=== PATIENT | female | born 1990 | race Caucasian/White ===

== ENCOUNTER 2021-12-20 16:47 | Emergency (ER) | payer BC, SELFPAY ==
--- NOTE | ~2021-12-20 | XR_ITS ---
EXAMINATION: XR chest 2V EXAM DATE: 12/20/2021 17:19 INDICATION: chest pain TECHNIQUE: Frontal and lateral projections of the chest obtained and reviewed. There is no prior crista dy for comparison. FINDINGS: The lungs are clear. There are no pleural effusions. The cardiomediastinal silhouette is within normal limits. There is no pneumothorax suspected. The bones and soft tissues are unremarkab le. IMPRESSION: Unremarkable chest x-ray exam. Reviewed, dictated and finalized at location G.
--- NOTE | ~2021-12-20 | CT_ITS ---
EXAMINATION: CTA chest PE protocol EXAM DATE: 12/20/2021 21:02 INDICATION: Left-sided chest pain, breast pain, elev d dimer.). TECHNIQUE: Spiral CTA of the chest (pulmonary arteries) was performed with 100 cc Omnipaque 350 intr avenous contrast injection. Images were acquired during the pulmonary arterial phase. Coronal maxi mum intensity projection 3D-reconstructions were created by the technologist on dedicated workstation . Axial, coronal and sagittal reformatted images were reviewed. The dose-length product (DLP) for t his examination was 865.29 mGy-cm. The exposure was tailored according to patient size (auto mA exp osure control), and iterative reconstruction (ASIR) was used as additional dose reduction technique. There is no prior study for comparison. FINDINGS: Pulmonary arteries are well opacified and without intraluminal filling defects. No thora cic aortic dissection. The lungs are clear. There are no pleural or pericardial effusions. Trach eobronchial tree is patent. There is no mediastinal, hilar or axillary lymphadenopathy. There is no pneumothorax. Heart normal in size. No evidence of coronary arterial calcification. Upper abd omen is unremarkable. There is thoracic spondylosis without osteoblastic or osteolytic lesions iden tified. IMPRESSION: No pulmonary emboli or acute cardiopulmonary findings. Reviewed, dictated and finalized at location G.
[2021-12-20 16:56] VITALS: BP 129/85; PULSE 113; RESP 18; TEMP 36.8; O2SAT 100
--- NOTE | 2021-12-20 17:01 | ECG_ITS ---
Measurements Intervals [place] Rate: 111 P: 50 MA: 137 QRS: 115 QRSD: 93 T: 53 QT: 315 QTc: 429 Interpretive Statements SINUS TACHYCARDIA LOW VOLTAGE RIGHT AXIS DEVIATION POSSIBLE RIGHT VENTRICULAR HYPERTROPHY [SOME/ALL OF: PROMINENT R IN V1, LATE TRANSITION, RAD, MAY, SSS] ABNORMAL ECG NO PREVIOUS ECG AVAILABLE FOR COMPARISON Electronically Signed On 12-21-2021 11:10:44 CDT by Alon Conley M.D.
[2021-12-20 18:19] LABS: Basophils Absolute Auto 0.1 K/mm3 (0.0-0.1); Basophils Percent Auto 0.5 % (0.2-1.2); Eosinophils Absolute Auto 0.1 K/mm3 (0-0.3); Eosinophils Percent Auto 0.5 % (0-4.4); Hematocrit 46.9 % (37.0-47.0); Hemoglobin 14.9 g/dL (12.0-15.0); Immature Granulocyte Absolute 0.05 K/mm3 (0.00-0.031); Immature Granulocyte Percent A 0.3 % (0-0.5); Lymphocytes Absolute Auto 3.64 K/mm3 (0.9-3.2); Lymphocytes Percent Auto 24.4 % (18.3-44.2); Mean Corpuscular HGB Conc 31.8 g/dl (32-36); Mean Corpuscular Hemoglobin 27.6 pg (26-34); Mean Corpuscular Volume 86.9 fl (80-100); Mean Platelet Volume 8.6 fl (7.4-10.4); Monocytes Percent Auto 6.9 % (2.6-8.5); Neutrophils Percent Auto 67.4 % (45.5-73.1); Platelet Count Result 379 k/mm3 (150-375); Red Cell Distribution Width 14.3 % (11.5-14.5); White Blood Count 14.9 K/mm3 (4.5-10.0)
[2021-12-20 18:28] LABS: Prothrombin Time 12.9 Seconds (11.1-14.7)
[2021-12-20 18:29] LABS: Alanine Aminotransferase 16 U/L (4-35); Albumin Level 4.8 g/dL (3.5-5.1); Alkaline Phosphatase 94 U/L (38-126); Anion Gap 9 mmol/L (8-16); Aspartate Amino Transferase 27 U/L (14-36); Bilirubin,Total 0.2 mg/dL (0.2-1.3); Blood Urea Nitrogen 11 mg/dL (7-17); Calcium 9.1 mg/dL (8.4-10.2); Carbon Dioxide 24 mmol/L (22-30); Chloride 107 mmol/L (98-107); Estimated CRCL calculation 137 ml/min; Estimated Glomerular Filt Rate > 60; Glucose 98 mg/dL (65-110); Lipase 126 U/L (23-300); Partial Thromboplastin Time 33.2 SECONDS (22.3-36.8); Potassium 3.7 mmol/L (3.4-5.0); Sodium 140 mmol/L (137-145)
[2021-12-20 18:31] LABS: D Dimer 0.83 ug/mL (<0.48)
[2021-12-20 18:40] LABS: Troponin I < 0.012 ng/mL (0.000-0.034)
--- NOTE | 2021-12-20 19:40 | ED.CHESTPAIN ---
HPI - Chest Pain General Chief Complaint: Chest Pain Stated Complaint: nausea, cold sweats, chest tightness Time Seen by Provider: 12/20/21 19:39 Source: patient Mode of arrival: ambulatory Limitations: no limitations History of Present Illness HPI narrative: Patient is a 41-year-old female complaining of chest pain, midsternal, tightness, was 8 out of 10, currently down to 2 out of 10, nonradiating, accompanied by nausea and diaphoresis, sudden onset, started this afternoon. Patient states that she is feeling better, currently denies any nausea or diaphoresis. Patient denies any shortness of breath, abdominal pain, vomiting, fever or chills. Related Data Home Medications Medication Instructions Recorded Confirmed No Home Medications 12/20/21 12/20/21 Allergies Allergy/AdvReac Type Severity Reaction Status Date / Time No Known Allergies Allergy Verified 12/20/21 20:07 Review of Systems Review of Systems: All systems reviewed & are unremarkable except as noted in HPI and below Constitutional: Constitutional: Denies body ache(s), Denies chills, Denies excessive sweating, Denies fatigue, Denies fever(s), Denies headache(s), Denies lethargy, Denies malaise, Denies weakness and Denies weight loss Eyes: Eyes: Denies blurry vision, Denies change in vision and Denies loss of vision ENT: Denies dizziness, Denies ear discharge, Denies headache(s), Denies lip swelling, Denies epistaxis, Denies nasal congestion, Denies neck pain, Denies throat swelling and Denies tongue swelling Cardiovascular: Cardiovascular: Denies rapid heart rate, Denies edema, Denies irregular heart rhythm, Denies lightheadedness, Denies palpitations, Denies dyspnea and Denies dyspnea on exertion Respiratory: Respiratory: Denies chest congestion, Denies cough, Denies hemoptysis, Denies dyspnea and Denies dyspnea on exertion Gastrointestinal: Gastrointestinal: Denies abdominal pain, Denies melena, Denies hematochezia, Denies diarrhea, Denies vomiting and Denies hematemesis Musculoskeletal: Musculoskeletal: Denies abnormal gait, Denies deformity, Denies joint swelling, Denies limited range of motion, Denies neck pain and Denies numbness Neurologic: Denies Abnormal speech present, Denies abnormal gait, Denies confusion, Denies dizziness, Denies headache(s), Denies focal weakness, Denies loss of vision, Denies numbness, Denies Other visual disturbances, Denies Sensory deficit (Neuro) and Denies weakness Psychiatric: Psychiatric: Denies confusion, Denies depression, Denies auditory hallucinations, Denies homicidal ideation and Denies suicidal ideation Endocrine: Endocrine: Denies cold intolerance, Denies excessive sweating, Denies fatigue, Denies heat intolerance and Denies palpitations Hematologic/Lymphatic: Hematologic/Lymphatic: Denies easy bleeding and Denies easy bruising Allergic/Immunologic: Allergic/Immunologic: Denies lip swelling, Denies throat swelling and Denies tongue swelling PMFSH Comments Past medical history: None Family history: Negative for coronary artery disease or ME Social history: Non-smoker no EtOH or drug use Exam Const: General: cooperative, comfortable, no acute distress, well developed, alert and awake; No confusion Nutritional Appearance: obese Orientation/consciousness: oriented to person, oriented to place, oriented to time, patient oriented x3 and No confusion Limitations: no limitations HENMT: Head: normal to inspection, normocephalic and atraumatic Ears: hearing grossly normal bilaterally, TM normal on the right and TM normal on the left General nose exam: Normal external nose present, Normal nares present and No nasal discharge present Face and sinus: normal facial exam Mouth: Yes Normal oral and palatal mucosa present, Yes lip normal, Yes tongue normal and Yes oropharynx normal Throat: posterior oropharynx normal, tonsils normal and uvula midline Eyes: General: appearance normal, both eyes and all related structures Pupi
[2021-12-20 19:48] VITALS: PULSE 104; O2SAT 100
[2021-12-20 20:06] VITALS: BP 109/71; PULSE 104; RESP 20; O2SAT 99
[2021-12-20 20:22] LABS: Troponin I < 0.012 ng/mL (0.000-0.034)
[2021-12-20 21:03] VITALS: BP 118/73; PULSE 95; RESP 17; O2SAT 100
[2021-12-20] MEDS: SODIUM CHLORIDE 0.9% IV 1,000 ML 999 ML IV CONT (21:07)
[2021-12-20 21:16] VITALS: BP 118/64; PULSE 92; RESP 17; O2SAT 100
[2021-12-20 21:59] VITALS: BP 101/68; PULSE 89; RESP 15; O2SAT 100
== END 2021-12-20 22:22 | disposition home or self-care (01) ==
PROVIDERS: Emergency Medicine; Emergency Provider Emergency Medicine
DX: R07.89 Other chest pain (principal); R00.0 Tachycardia, unspecified; R94.31 Abnormal electrocardiogram [ECG] [EKG]
CPT/HCPCS: 36415; 71046; 71275; 80053; 81025; 83690; 84484; 85025; 85380; 85610; 85730; 93005; 96360; 99284; J7030; Q9967

== ENCOUNTER 2022-01-17 11:45 | Outpatient (CLI) | payer BC, SELFPAY ==
[2022-01-17 12:25] LABS: Alanine Aminotransferase 15 U/L (4-35); Albumin Level 4.5 g/dL (3.5-5.1); Alkaline Phosphatase 91 U/L (38-126); Anion Gap 6 mmol/L (8-16); Aspartate Amino Transferase 23 U/L (14-36); Bilirubin,Total 0.5 mg/dL (0.2-1.3); Blood Urea Nitrogen 9 mg/dL (7-17); Calcium 8.7 mg/dL (8.4-10.2); Carbon Dioxide 23 mmol/L (22-30); Chloride 107 mmol/L (98-107); Cholesterol 218 mg/dL (0-200); Estimated Glomerular Filt Rate > 60; Glucose 95 mg/dL (65-110); HDL Direct 39 mg/dL; Potassium 3.9 mmol/L (3.4-5.0); Sodium 136 mmol/L (137-145); Triglycerides 83 mg/dL (<150)
[2022-01-17 12:26] LABS: Basophils Absolute Auto 0.1 K/mm3 (0.0-0.1); Basophils Percent Auto 0.7 % (0.2-1.2); Eosinophils Absolute Auto 0.1 K/mm3 (0-0.3); Eosinophils Percent Auto 0.7 % (0-4.4); Hematocrit 47.5 % (37.0-47.0); Hemoglobin 14.9 g/dL (12.0-15.0); Hemoglobin A1C 5.3 % (<5.7); Immature Granulocyte Absolute 0.02 K/mm3 (0.00-0.031); Immature Granulocyte Percent A 0.2 % (0-0.5); Immature Platelet Fraction Pct 1.5 % (0.9-11.2); Lymphocytes Absolute Auto 2.98 K/mm3 (0.9-3.2); Lymphocytes Percent Auto 28.6 % (18.3-44.2); Mean Corpuscular HGB Conc 31.4 g/dl (32-36); Mean Corpuscular Hemoglobin 27.5 pg (26-34); Mean Corpuscular Volume 87.6 fl (80-100); Monocytes Absolute Auto 0.7 K/mm3 (0.1-0.6); Monocytes Percent Auto 6.4 % (2.6-8.5); Neutrophils Absolute Auto 6.6 K/mm3 (1.3-6.7); Neutrophils Percent Auto 63.4 % (45.5-73.1); Platelet Count Result 342 k/mm3 (150-375); Red Blood Count 5.42 M/mm3 (4.2-5.4); White Blood Count 10.4 K/mm3 (4.5-10.0)
[2022-01-17 12:36] LABS: LDL Cholesterol Direct 119 mg/dL
[2022-01-17 12:48] LABS: Vitamin D 25 Hydroxy 21.7 ng/mL
== END 2022-01-17 11:46 | disposition home or self-care (01) ==
LOC: ANHLAB 11:47
PROVIDERS: Visit Provider Nurse Practitioner
DX: Z13.220 Encounter for screening for lipoid disorders (principal); Z13.29 Encounter for screening for other suspected endocrine disorder; Z13.1 Encounter for screening for diabetes mellitus; Z13.21 Encounter for screening for nutritional disorder; Z13.6 Encounter for screening for cardiovascular disorders
CPT/HCPCS: 36415; 80053; 80061; 82306; 83036; 84443; 85025; 85055

== ENCOUNTER 2022-01-25 10:46 | Outpatient (CLI) | payer BC, SELFPAY ==
--- NOTE | ~2022-01-25 | US_ITS ---
EXAMINATION: US soft tissue head and neck DATE: 01/25/2022 11:34 INDICATION: Left neck lump. TECHNIQUE: Multiple grayscale and Doppler ultrasound images of the neck were obtained. COMPARISON: Chest CT 12/20/2021 FINDINGS: There is no abnormal mass or lymphadenopathy in the patient's area of concern in left neck. IMPRESSION: 1. No abnormal mass or lymphadenopathy in the patient's area of concern in left neck. Reviewed, dictated and finalized at location A.
== END 2022-01-25 10:47 | disposition home or self-care (01) ==
LOC: ANHIMG 10:49
PROVIDERS: PCP Internal Medicine; Visit Provider Nurse Practitioner
DX: R22.1 Localized swelling, mass and lump, neck (principal)
CPT/HCPCS: 76536

== ENCOUNTER 2022-01-28 16:58 | Outpatient (CLI) | payer BC, SELFPAY ==
--- NOTE | ~2022-01-28 | CT_ITS ---
EXAMINATION: CT brain wo con DATE: 01/28/2022 17:11 INDICATION: Dizziness and giddiness TECHNIQUE: Computed tomography (CT) of the head was performed without intravenous contrast. Sagittal and coronal reconstructions were performed. The mA was adjusted according to patient size. Iterative reconstruction technique was employed. The dose-length product was 605.33 mGy-cm. COMPARISON: None FINDINGS: No acute intracranial hemorrhage, acute infarction or abnormal extra axial fluid collection. Ventricl es are normal and symmetric. No mass/mass effect. The orbits, paranasal sinuses and mastoid air cells are normal. IMPRESSION: 1. Normal head CT. Reviewed, dictated and finalized at location A. IMPRESSION: 1. Normal head CT.
== END 2022-01-28 16:59 | disposition home or self-care (01) ==
LOC: ANHIMG 17:01
PROVIDERS: PCP Internal Medicine; Visit Provider Nurse Practitioner
DX: R42 Dizziness and giddiness (principal)
CPT/HCPCS: 70450

== ENCOUNTER 2022-01-31 10:23 | Outpatient (CLI) | payer BC, SELFPAY ==
--- NOTE | ~2022-01-31 | US_ITS ---
EXAMINATION: US abdomen complete DATE: 01/31/2022 13:05 INDICATION: Abdominal pain. TECHNIQUE: Multiple grayscale and Doppler ultrasound images of the abdomen were obtained. COMPARISON: Chest CT 12/20/2021 FINDINGS: The visualized portions of the head and body of the pancreas are normal. There is a 1.8 cm hyperechoic mass in the liver. There is normal flow in main portal vein. The gallbladder is normal in size. No gallstones or gallbladder wall thickening. There was no sonographic Grossman sign. The common duct is normal and measures 3 mm. The kidneys are normal in size. The spleen is normal in size. Abdo keagan aorta is normal in caliber. Inferior vena cava is normal. IMPRESSION: 1. 1.8 cm hyperechoic liver mass. In the absence of known malignancy or chronic liver disease, this f inding is likely a hemangioma. Reviewed, dictated and finalized at location B. IMPRESSION: 1. 1.8 cm hyperechoic liver mass. In the absence of known malignancy or chronic liver disease, this finding is likely a hemangioma.
--- NOTE | 2022-01-31 10:42 | EST_ITS ---
Patient Info Name: Alexandria Rios Age: 31 years : 1990 Gender: Female Ht: 69 in Wt: 258 lbs BSA: 2.44 m2 HR: 78 bpm BP: 119 / 73 mmHg Heart Rhythm: Sinus Rhythm Exam Date: 01/31/2022 11:26 AM Exam Location: [facility] Patient Status: Outpatient Admit Date: 01/31/2022 Staff Ordering Physician: Catherine Whiteside VP PURCH[employer]ING[employer]C Air Quality Chemist: EMILIANO Attending Provider: YUNIER SINGH DO Referring Physician: Miesha HEALY; Exercise Technologist: Rosanne Roy RDCS Exercise Physician: Yunier Singh DO Exam Type: CA stress echo Study Info Indications R00.0 - Tachycardia, unspecified Treadmill exercise stress echocardiogram is performed. Summary 1. 1. Negative Real exercise stress test for ischemic ST changes by ECG criteria. 2. 2. Reduced functional capacity, achieving 7 METs of workload. 3. 3. Appropriate HR response to exercise. 4. 4. Appropriate HR recovery at 1 minute post exercise. 5. 5. Negative stress echocardiogram for ischemia by wall motion analysis. 6. 6. Patient informed of the above results. Stress Echo Findings Left Ventricle Appropriate increase in LV endocardial thickening with systole. Appropriate augmentation of contractility with systole. No wall motion abnormality. Left Ventricle Normal LV systolic function, no wall motion abnormality. Protocol: Real Stress ECG Details Stage: REST Duration (min): 5 min : 41 sec Speed (mph): 0.0 Grade (%): 0 HR (bpm): 82 SBP (mmHg): 119 DBP (mmHg): 73 METS: --- Stage: REST Duration (min): 19 min : 57 sec Speed (mph): 0.0 Grade (%): 0 HR (bpm): 92 SBP (mmHg): 119 DBP (mmHg): 73 METS: --- Stage: STAGE 1 Duration (min): 1 min : 0 sec Speed (mph): 1.7 Grade (%): 10 HR (bpm): 122 SBP (mmHg): 119 DBP (mmHg): 73 METS: --- Stage: STAGE 1 Duration (min): 2 min : 0 sec Speed (mph): 1.7 Grade (%): 10 HR (bpm): 136 SBP (mmHg): 119 DBP (mmHg): 73 METS: --- Stage: STAGE 1 Duration (min): 3 min : 0 sec Speed (mph): 1.7 Grade (%): 10 HR (bpm): 144 SBP (mmHg): 142 DBP (mmHg): 80 METS: --- Stage: STAGE 2 Duration (min): 1 min : 0 sec Speed (mph): 2.5 Grade (%): 12 HR (bpm): 156 SBP (mmHg): 142 DBP (mmHg): 80 METS: --- Stage: STAGE 2 Duration (min): 2 min : 0 sec Speed (mph): 2.5 Grade (%): 12 HR (bpm): 168 SBP (mmHg): 169 DBP (mmHg): 83 METS: --- Stage: STAGE 2 Duration (min): 2 min : 1 sec Speed (mph): 0.0 Grade (%): 0 HR (bpm): 169 SBP (mmHg): 169 DBP (mmHg): 83 METS: --- Stage: RECOVERY Duration (min): 0 min : 58 sec Speed (mph): 0.0 Grade (%): 0 HR (bpm): 83 SBP (mmHg): 169 DBP (mmHg): 83 METS: --- Stage: RECOVERY Duration (min): 1 min : 58 sec Speed (mph): 0.0 Grade (%): 0 HR (bpm): 99 SBP (mmHg): 169 DBP (mmHg): 83 METS: --- Stage: RECOVERY Duration (m
--- NOTE | 2022-02-04 12:38 | WPDHOLTEREM ---
Holter/Event Monitor Holter/Event Monitor Date of procedure: 01/31/22 Holter/Event Procedure: 48 Hr Holter Monitor Indications: Tachycardia Conclusion: 1. 48 hour hour holter monitor on 01/31/22. 2. Underlying rhythm is sinus rhythm. HR range 49-156 bpm; average HR 90 bpm. 3. There is 1 premature supraventricular complexes. No supraventricular tachycardia. 4. There is 1 premature ventricular complex. No ventricular tachycardia. 5. No sinoatrial or atrioventricular blocks. No significant pauses greater than 2 seconds. 6. Patient reports symptoms of chest pressure, lightheadedness, migraines which demonstrate sinus rhythm, HR range 90-115 bpm.
== END 2022-01-31 10:24 | disposition home or self-care (01) ==
LOC: ANHCARD 10:23
PROVIDERS: PCP Internal Medicine; Visit Provider Nurse Practitioner
DX: R00.0 Tachycardia, unspecified (principal); R07.9 Chest pain, unspecified; R10.9 Unspecified abdominal pain
CPT/HCPCS: 76700; 93225; 93226; 93351

== ENCOUNTER 2022-02-04 07:04 | Outpatient (CLI) | payer BC, SELFPAY ==
--- NOTE | 2022-02-07 10:20 | P.NEURO_ITS ---
Neurology EEG Report General Information Date of Study: 02/04/22 TEST eeg DIAGNOSIS Loss of consciousness CONDITION OF RECORDING awake drowsy and sleep EEG NUMBER [id number] CLINICAL HISTORY patient states about 2 months ago started having episodes of becoming dizzy visual changes and then losing consciousness for a couple of seconds EEG DESCRIPTION basic resting occipital frequency consists of low to medium voltage 8 to 10 hertz per 2nd alpha admixed with low-voltage 15 to 18 hertz per 2nd beta. Low- voltage beta activity seen diffusely admixed with waxing and waning posterior alpha rhythm. Bilateral symmetrical sleep activity seen during sleep. Photic stimulation produced normal drive. Hyperventilation not done. Non paroxysmal. Nonfocal. Nonlateralizing. IMPRESSION No significant abnormalities noted
== END 2022-02-04 07:05 | disposition home or self-care (01) ==
LOC: ANHCARD 07:05
PROVIDERS: PCP Internal Medicine; Visit Provider Nurse Practitioner
DX: R55 Syncope and collapse (principal)
CPT/HCPCS: 95816

== ENCOUNTER 2022-03-01 18:07 | Emergency (ER) | payer BC, SELFPAY ==
--- NOTE | ~2022-03-01 | XR_ITS ---
EXAMINATION: XR chest 2V DATE: 03/01/2022 19:11 INDICATION: Chest pain TECHNIQUE: PA and lateral views of the chest are obtained. COMPARISON: 12/20/2021 FINDINGS: The lungs are free of acute opacities. There is no pleural effusion or pneumothorax. The ca rdiomediastinal silhouette is normal. The visualized bones and soft tissues are unremarkable. IMPRESSION: 1. No acute cardiopulmonary abnormality. Reviewed, dictated and finalized at location F.
--- NOTE | 2022-03-01 18:10 | ECG_ITS ---
Measurements Intervals [place] Rate: 107 P: 5 CA: 141 QRS: 252 QRSD: 88 T: 11 QT: 326 QTc: 436 Interpretive Statements SINUS TACHYCARDIA RSR' IN V1 OR V2, PROBABLY NORMAL VARIANT LOW QRS VOLTAGE IN PRECORDIAL LEADS BORDERLINE R WAVE PROGRESSION, ANTERIOR LEADS BORDERLINE T WAVE ABNORMALITY- INFERIOR LEADS BASELINE WANDER- I, III, AVL, AVF ABNORMAL ECG Electronically Signed On 03-01-2022 20:36:48 CDT by Yunier Hooks D.O.
[2022-03-01 18:24] VITALS: BP 121/87; PULSE 106; RESP 19; TEMP 36.3; O2SAT 100
[2022-03-01 18:35] VITALS: PULSE 101
[2022-03-01 18:47] VITALS: BP 112/82; PULSE 109; RESP 18; O2SAT 99
[2022-03-01 18:50] LABS: Basophils Absolute Auto 0.1 K/mm3 (0.0-0.1); Basophils Percent Auto 0.7 % (0.2-1.2); Eosinophils Absolute Auto 0.2 K/mm3 (0-0.3); Eosinophils Percent Auto 1.2 % (0-4.4); Hematocrit 45.1 % (37.0-47.0); Hemoglobin 14.4 g/dL (12.0-15.0); Immature Granulocyte Absolute 0.03 K/mm3 (0.00-0.031); Immature Granulocyte Percent A 0.2 % (0-0.5); Lymphocytes Absolute Auto 4.31 K/mm3 (0.9-3.2); Lymphocytes Percent Auto 33.3 % (18.3-44.2); Mean Corpuscular HGB Conc 31.9 g/dl (32-36); Mean Corpuscular Hemoglobin 27.2 pg (26-34); Mean Corpuscular Volume 85.1 fl (80-100); Mean Platelet Volume 8.3 fl (7.4-10.4); Monocytes Absolute Auto 0.9 K/mm3 (0.1-0.6); Monocytes Percent Auto 7.3 % (2.6-8.5); Neutrophils Absolute Auto 7.4 K/mm3 (1.3-6.7); Neutrophils Percent Auto 57.3 % (45.5-73.1); Platelet Count Result 339 k/mm3 (150-375); Red Cell Distribution Width 13.5 % (11.5-14.5); White Blood Count 12.9 K/mm3 (4.5-10.0)
[2022-03-01 19:01] LABS: Partial Thromboplastin Time 35.3 SECONDS (22.3-36.8)
[2022-03-01 19:05] LABS: Alanine Aminotransferase 16 U/L (6-35); Albumin Level 4.4 g/dL (3.5-5.1); Alkaline Phosphatase 85 U/L (38-126); Anion Gap 9 mmol/L (8-16); Aspartate Amino Transferase 29 U/L (14-36); Bilirubin,Total 0.2 mg/dL (0.2-1.3); Blood Urea Nitrogen 12 mg/dL (7-17); Carbon Dioxide 24 mmol/L (22-30); Chloride 105 mmol/L (98-107); Estimated CRCL calculation 93 ml/min; Estimated Glomerular Filt Rate > 60; Glucose 99 mg/dL (65-110); Lipase 125 U/L (23-300); Sodium 138 mmol/L (137-145)
[2022-03-01 19:15] LABS: Troponin I < 0.012 ng/mL (0.000-0.034)
[2022-03-01] MEDS: ASPIRIN 81 MG CHEWABLE TABLET 324 MG PO (20:46)
--- NOTE | 2022-03-01 20:59 | ED.CHESTPAIN ---
HPI - Chest Pain General Chief Complaint: Chest Pain Stated Complaint: chest pain, increased HR Time Seen by Provider: 03/01/22 19:00 History of Present Illness HPI narrative: Patient is a 31-year-old female who presents ER with chest pain. Intermittent over the last 2 months. Began at 3 PM today. Sharp and central to left side. No aggravating or alleviating factors. Typically associated with tachycardia in the 150s. She has had a stress test as well as a Holter monitor. She has sinus tachycardia no arrhythmia. Reports on occasion she will get some lightheadedness with this. She reports there was one episode where she blacked out for 1 second but she did not physically wake up on the ground. She is discontinuing her metoprolol because it was giving her chest pain as well. She does follow-up with cardiology scheduled. Related Data Allergies Allergy/AdvReac Type Severity Reaction Status Date / Time No Known Allergies Allergy Verified 03/01/22 18:27 Review of Systems Review of Systems: All systems reviewed & are unremarkable except as noted in HPI and below Constitutional: Constitutional: Denies chills, Denies fatigue and Denies fever(s) ENT: Reports dizziness and Denies nasal congestion Cardiovascular: Cardiovascular: Reports chest pain, Reports rapid heart rate and Denies radiating jaw, neck or arm pain Respiratory: Respiratory: Denies cough and Denies dyspnea Gastrointestinal: Gastrointestinal: Denies abdominal pain, Denies nausea and Denies vomiting PMFSH Past Medical History Medical History GERD (gastroesophageal reflux disease) Headache Surgical History Surgical History History of appendectomy 2010 Hx of prior ablation treatment 2012, [facility] Family History Family History Son Heart disease Social History Social History Smoking status: Never smoker Alcohol intake: never Substance use: never Substance use type: does not use Gender identity (if verbalized by the patient): Female Exam Narrative: GENERAL: Well-appearing, well-nourished, and in no acute distress. HEAD: Normocephalic, atraumatic. ENT: TMs normal bilaterally and ear canals free of cerumen. NECK: Supple. CHEST: Clear to auscultation. No respiratory distress. HEART: Regular rate and rhythm. Normal peripheral pulses. ABDOMEN: Soft, nontender, nondistended. EXTREMITIES: Normal range of motion. No edema. NEURO: Alert and oriented x3. PSYCH: Normal mood and affect. Course Course Emergency Course: Patient resting comfortably. Unremarkable evaluation. Recommend follow-up with her infrastructure consultant. Patient could have syndrome of inappropriate tachycardia but is not sustained. Vital Signs Vital signs: Vital Signs Temperature 97.4 F L 03/01/22 18:24 Pulse Rate 106 H 03/01/22 18:24 Respiratory Rate 19 03/01/22 18:24 Blood Pressure 121/87 03/01/22 18:24 Pulse Oximetry 100 03/01/22 18:24 Oxygen Delivery Room Air 03/01/22 18:24 Temperature 97.4 F L 03/01/22 18:24 Pulse Rate 109 H 03/01/22 18:47 Respiratory Rate 18 03/01/22 18:47 Blood Pressure 112/82 03/01/22 18:47 Pulse Oximetry 99 03/01/22 18:47 Oxygen Delivery Room Air 03/01/22 18:24 MDM - Chest Pain Lab Data Result diagrams: 03/01/22 18:45 03/01/22 18:45 Labs: Lab Results 03/01/22 03/01/22 03/01/22 Range/Units 18:45 18:45 18:45 WBC 12.9 H (4.5-10.0) K/mm3 RBC 5.30 (4.2-5.4) M/mm3 Hgb 14.4 (12.0-15.0) g/dL Hct 45.1 (37.0-47.0) % MCV 85.1 (80-100) fl MCH 27.2 (26-34) pg MCHC 31.9 L (32-36) g/dl RDW 13.5 (11.5-14.5) % Plt Count 339 (150-375) k/mm3 MPV 8.3 (7.4-10.4) fl Immature Gran % (Auto) 0.2 (0-0.5
[2022-03-01 21:23] VITALS: BP 143/98; PULSE 99; RESP 20; O2SAT 100
== END 2022-03-01 21:26 | disposition home or self-care (01) ==
PROVIDERS: Emergency Medicine; Emergency Provider Emergency Medicine; PCP Internal Medicine
DX: R07.9 Chest pain, unspecified (principal)
CPT/HCPCS: 36415; 71046; 80053; 83690; 84484; 85025; 85610; 85730; 93005; 99284; A9270

== ENCOUNTER 2022-04-23 16:29 | Emergency (ER) | payer BC, SELFPAY ==
--- NOTE | ~2022-04-23 | CT_ITS ---
EXAMINATION: CTA chest PE protocol DATE: 04/23/2022 18:51 INDICATION: Pulmonary embolism TECHNIQUE: Computed tomography angiography (CTA) of the chest was performed with 100 mL Omnipaque-350 intravenous contrast timed to evaluate the pulmonary arteries. Coronal maximum intensity projection 3D-reconstructions were created by the technologist. The dose-length product (DLP) was 920.40 mGy-cm. Automated exposure control and iterative reconstruction technique were employed. COMPARISON: 12/20/2021, x-ray chest 07/24/2022. FINDINGS: Study quality: Adequate. Pulmonary arteries: No pulmonary emboli detected. Thoracic aorta: Normal. Lung parenchyma and airways: Clear. Dependent atelectasis. Thoracic inlet, axillae and chest wall: Unremarkable. Mediastinum: Normal. Heart and pericardium: Normal. Coronary artery calcifications: Absent. Pleura: Unremarkable. Upper abdomen: No significant finding. Bones: No acute osseous finding. IMPRESSION: No CT evidence of acute pulmonary embolus. Reviewed, dictated and finalized at location K.
--- NOTE | ~2022-04-23 | XR_ITS ---
EXAMINATION: XR chest 2V Exam Date/Time: 04/23/2022 16:48 CDT HISTORY: cp; Lt sided numbness, hx of tachycardia, non smoker Comparison: 03/01/2022. RESULT: Lines, tubes, and devices: None. Lungs and pleura: Clear. Cardiomediastinal silhouette: Stable. Other: No acute osseous or upper abdominal finding. IMPRESSION: No acute cardiopulmonary process. Reviewed, dictated and finalized at location K.
--- NOTE | 2022-04-23 16:32 | ECG_ITS ---
Measurements Intervals [place] Rate: 120 P: 50 ID: 141 QRS: 107 QRSD: 89 T: 60 QT: 339 QTc: 480 Interpretive Statements SINUS TACHYCARDIA RIGHT AXIS DEVIATION RSR' IN V1 OR V2, PROBABLY NORMAL VARIANT LOW QRS VOLTAGE IN PRECORDIAL LEADS BORDERLINE R WAVE PROGRESSION, ANTERIOR LEADS BASELINE WANDER- V1-V3 ABNORMAL ECG Electronically Signed On 04-23-2022 17:08:25 CDT by Yunier Hooks D.O.
[2022-04-23 16:33] VITALS: BP 133/74; PULSE 129; RESP 21; TEMP 36.3; O2SAT 100
[2022-04-23 16:37] VITALS: PULSE 131
[2022-04-23] MEDS: ASPIRIN 81 MG CHEWABLE TABLET 324 MG PO (16:47)
[2022-04-23 16:50] LABS: Basophils Absolute Auto 0.1 K/mm3 (0.0-0.1); Basophils Percent Auto 0.7 % (0.2-1.2); Eosinophils Absolute Auto 0.1 K/mm3 (0-0.3); Eosinophils Percent Auto 1.1 % (0-4.4); Hematocrit 46.4 % (37.0-47.0); Hemoglobin 14.7 g/dL (12.0-15.0); Immature Granulocyte Absolute 0.03 K/mm3 (0.00-0.031); Immature Granulocyte Percent A 0.2 % (0-0.5); Lymphocytes Absolute Auto 4.58 K/mm3 (0.9-3.2); Lymphocytes Percent Auto 37.2 % (18.3-44.2); Mean Corpuscular HGB Conc 31.7 g/dl (32-36); Mean Corpuscular Volume 85.3 fl (80-100); Mean Platelet Volume 8.5 fl (7.4-10.4); Monocytes Absolute Auto 1.1 K/mm3 (0.1-0.6); Monocytes Percent Auto 8.9 % (2.6-8.5); Neutrophils Absolute Auto 6.4 K/mm3 (1.3-6.7); Neutrophils Percent Auto 51.9 % (45.5-73.1); Platelet Count Result 424 k/mm3 (150-375); Red Blood Count 5.44 M/mm3 (4.2-5.4); Red Cell Distribution Width 13.6 % (11.5-14.5); White Blood Count 12.3 K/mm3 (4.5-10.0)
--- NOTE | 2022-04-23 16:53 | ED.CHESTPAIN ---
HPI - Chest Pain General Chief Complaint: Chest Pain Stated Complaint: chest pain/ extremity tingling Time Seen by Provider: 04/23/22 16:50 Source: patient Mode of arrival: ambulatory Limitations: no limitations History of Present Illness HPI narrative: Patient is 31 years old white female drove herself to the emergency room, complaining of intermittent chest pain since November 2021. Was seen by her family physician and a roller varnisher was extensive work-up without specific diagnosis. Patient is concerned about the possibility of leukemia and scheduled to see a earth boring machine operator because of intermittent bruises. Patient also complaining of numbness of the face bilaterally, of the hands and legs. Patient denies any fever, chills, nausea, vomiting, taken any medication at home, she does not smoke or drink or uses drugs, she is single, 2 children, student. Denies any possibility of stress. Related Data Allergies Allergy/AdvReac Type Severity Reaction Status Date / Time No Known Allergies Allergy Verified 04/23/22 16:38 Review of Systems Review of Systems: All systems reviewed & are unremarkable except as noted in HPI and below PMFSH Past Medical History Medical History GERD (gastroesophageal reflux disease) Headache Surgical History Surgical History History of appendectomy 2010 Hx of prior ablation treatment 2012, [facility] Family History Family History Son Heart disease Social History Social History Smoking status: Never smoker Alcohol intake: never Substance use: never Substance use type: does not use Gender identity (if verbalized by the patient): Female Exam Narrative: General appearance: Well-developed, well-nourished Skin: Normal color Head: Normocephalic, nontraumatic Eyes: Clear conjunctiva ENT: Oropharynx normal, ears normal, nose normal Neck: Supple, nontender Chest and respiratory: Airway patent, no respiratory distress, no accessory muscle use Heart: Regular rate/rhythm Abdomen: Soft, nontender, no organomegaly, quiet bowel sounds Vascular: Normal peripheral pulses, normal capillary refill. Musculoskeletal: Normal range of motion, nontender back Neurologic: Alert and oriented ?3, STOPBOARD ASSEMBLER is normal as tested, no gross motor deficit Course Course Emergency Course: Work-up today showed no significant finding to explain patient condition. Anxiety, stress related symptoms is my concern. Vital Signs Vital signs: Vital Signs Temperature 36.3 C L 04/23/22 16:33 Pulse Rate 129 H 04/23/22 16:33 Respiratory Rate 21 H 04/23/22 16:33 Blood Pressure 133/74 04/23/22 16:33 Pulse Oximetry 100 04/23/22 16:33 Oxygen Delivery Room Air 04/23/22 16:33 Temperature 36.3 C L 04/23/22 16:33 Pulse Rate 112 H 04/23/22 19:08 Respiratory Rate 13 04/23/22 19:08 Blood Pressure 118/54 L 04/23/22 19:08 Pulse Oximetry 97 04/23/22 19:08 Oxygen Delivery Room Air 04/23/22 16:33 MDM - Chest Pain Differential Diagnosis Differential diagnosis: Likely pneumothorax, atypical chest pain, costochondritis and other (Anxiety related symptoms) Lab Data Result diagrams: 04/23/22 16:45 04/23/22 16:45 Labs: Lab Results 04/23/22 04/23/22 04/23/22 Range/Units 16:45 16:45 16:45 WBC 12.3 H (4.5-10.0) K/mm3 RBC 5.44 H (4.2-5.4) M/mm3 Hgb 14.7 (12.0-15.0) g/dL Hct 46.4 (37.0-47.0) % MCV 85.3 (80-100) fl MCH 27.0 (26-34) pg MCHC 31.7 L
[2022-04-23 17:00] LABS: Alanine Aminotransferase 22 U/L (6-35); Albumin Level 4.7 g/dL (3.5-5.1); Alkaline Phosphatase 80 U/L (38-126); Anion Gap 13 mmol/L (8-16); Aspartate Amino Transferase 26 U/L (14-36); Bilirubin,Total 0.3 mg/dL (0.2-1.3); Blood Urea Nitrogen 8 mg/dL (7-17); Calcium 9.5 mg/dL (8.4-10.2); Carbon Dioxide 22 mmol/L (22-30); Chloride 105 mmol/L (98-107); Estimated CRCL calculation 108 ml/min; Estimated Glomerular Filt Rate > 60; Glucose 124 mg/dL (65-110); Lipase 133 U/L (23-300); Potassium 3.3 mmol/L (3.4-5.0); Sodium 140 mmol/L (137-145)
[2022-04-23 17:12] LABS: Troponin I < 0.012 ng/mL (0.000-0.034)
[2022-04-23 17:17] LABS: Prothrombin Time 13.2 Seconds (11.1-14.7)
[2022-04-23 17:18] LABS: Partial Thromboplastin Time 32.1 SECONDS (22.3-36.8)
[2022-04-23 17:25] LABS: D Dimer 1.07 ug/mL (<0.48)
[2022-04-23 18:36] VITALS: PULSE 119; RESP 15; O2SAT 97
[2022-04-23 19:08] VITALS: BP 118/54; PULSE 112; RESP 13; O2SAT 97
[2022-04-23 19:34] VITALS: BP 121/60; PULSE 108; RESP 16; O2SAT 96
== END 2022-04-23 19:36 | disposition home or self-care (01) ==
PROVIDERS: Emergency Provider Emergency Medicine
DX: R07.9 Chest pain, unspecified (principal); R20.2 Paresthesia of skin; E87.6 Hypokalemia; K21.9 Gastro-esophageal reflux disease without esophagitis; R00.0 Tachycardia, unspecified; R94.31 Abnormal electrocardiogram [ECG] [EKG]
CPT/HCPCS: 36415; 71046; 71275; 80053; 81025; 83690; 84443; 84484; 85025; 85380; 85610; 85730; 93005; 99284; A9270; Q9967

== ENCOUNTER 2025-05-01 11:06 | Emergency (ER) | payer BC, SELFPAY ==
[2025-05-01] VITALS (15 sets, daily range): BP systolic 98–120; BP diastolic 55–77; PULSE 71–91; RESP 11–24; TEMP 36.8; O2SAT 99–100
--- NOTE | ~2025-05-01 | XR_ITS ---
EXAMINATION: XR chest 2V 05/01/2025 12:09 INDICATION: Hypertension. Chest pressure. PROCEDURE: 2 view chest COMPARISON: 04/23/2022 FINDINGS: The lungs are clear. The cardiomediastinal silhouette is within normal limits. There are no pleural effusions. There is no pneumothorax suspected. IMPRESSION: 1: NO ACUTE CARDIOPULMONARY DISEASE. Reviewed, dictated and finalized at location B.
--- NOTE | 2025-05-01 11:08 | ECG_ITS ---
Test Date: 2025-05-01 11:10:49 Measurements Intervals [place] Rate: 80 P: 61 [place]: 138 QRS: 94 QRSD: 95 T: 59 QT: 379 QTc: 440 Interpretive Statements SINUS RHYTHM RIGHT AXIS DEVIATION POSSIBLE LEFT ATRIAL ENLARGEMENT LOW QRS VOLTAGE IN PRECORDIAL LEADS INCOMPLETE RIGHT BUNDLE BRANCH BLOCK BORDERLINE ECG No previous ECG available for comparison Electronically Signed On 05-02-2025 06:14:11 CDT by Yunier Hooks D.O.
--- NOTE | 2025-05-01 11:15 | ED.CHESTPAIN ---
HPI - Chest Pain General Chief Complaint: Chest Pain <Ashleigh Jacobson APRN - Last Filed: 05/01/25 11:22> Stated Complaint: CHEST PRESSURE, BACK PAIN X1WK <Ashleigh Jacobson APRN - Last Filed: 05/01/25 11:22> Time Seen by Provider: 05/01/25 11:15 <Ashleigh Jacobson APRN - Last Filed: 05/01/25 11:22> Focused HPI: Patient is a 34-year-old female who presents to the ER with complaints of chest pressure, intermittent shortness of breath, and upper back pain. She reports her symptoms started about a week ago but worsened last night. Patient denies ever experiencing the symptoms in the past. She reports last night she put a pulse ox on in her heart rate was in the 50s. Patient also endorses intermittent sweatiness. She endorses a history of gastric bypass, hyperparathyroidism, and anemia. Patient denies any urinary symptoms, recent fevers, or cough. GENERAL: Well-appearing, well-nourished, and in no acute distress. HEAD: Normocephalic, atraumatic. CHEST: Clear to auscultation. ?No respiratory distress. HEART: Regular rate and rhythm.? NEURO: ?Alert and oriented x3. Patient screened in triage and initial orders placed.? ?Additional care and disposition to be based upon?diagnostic testing and treatment. <Ashleigh Jacobson APRN - Last Filed: 05/01/25 11:22> History of Present Illness HPI narrative: per HPI <Fatimah Mora MD - Last Filed: 05/01/25 12:49> Related Data Allergies/Adverse Reactions: Allergies Allergy/AdvReac Type Severity Reaction Status Date / Time No Known Allergies Allergy Verified 05/01/25 11:33 <Ashleigh Jacobson APRN - Last Filed: 05/01/25 11:22> Review of Systems Review of Systems: All systems reviewed & are unremarkable except as noted in HPI and below <Fatimah Mora MD - Last Filed: 05/01/25 12:49> PMFSH Past Medical History Medical History: Medical History GERD (gastroesophageal reflux disease) Headache <Ashleigh Jacobson APRN - Last Filed: 05/01/25 11:22> Surgical History Surgical History: Surgical History History of appendectomy 2010 Hx of prior ablation treatment 2012, [facility] <Ashleigh Jacobson APRN - Last Filed: 05/01/25 11:22> Family History Family History: Family History Son Heart disease <Ashleigh Jacobson SOCIOLOGY INSTRUCTOR - Last Filed: 05/01/25 11:22> Social History Social History: Social History Smoking status: Never smoker Alcohol intake: never Substance use: never Substance use type: does not use Living arrangements: with family Gender identity (if verbalized by the patient): Female <Ashleigh Jacobson APRN - Last Filed: 05/01/25 11:22> Exam Narrative: EXAMINATION OF ORGAN SYSTEMS/BODY AREAS: Constitutional: Vital signs per nursing GENERAL:[No acute distress, non-toxic appearing.] HEAD: Normal with no signs of head trauma. EYES: EOMI, conjunctiva normal ENT: Hearing grossly intact LUNGS: Nonlabored breathing. Clear to auscultation bilaterally HEART: [Regular rate and rhythm] ABD: [Soft], [nontender to palpation] EXT: Normal range of motion SKIN: [No rashes or lesions.] NEURO: [Alert and oriented x 3. No gross focal sensory or strength deficits.] PSYCH: Normal affect <Fatimah Mora MD - Last Filed: 05/01/25 12:49> Course Vital Signs Vital signs: Vital Signs Temperature 98.3 F 05/01/25 11:27 Pulse Rate 86 05/01/25 11:27 Respiratory Rate 16 05/01/25 11:27 Blood Pressure 120/74 05/01/25 11:27 Pulse Oximetry 99 05/01/25 11:27 Temperature 98.3 F 05/01/25 11:27 Pulse Rate 86 05/01/25 11:27 Respiratory Rate 16 05/01/25 11:27 Blood Pressure 120/74 05/01/25 11:27 Pulse Oximetry 99 05/01/25 11:27 <Ashleigh Jacobson APRN - Last Filed: 05/01/25 11:22> Vital Signs Temperature 98.3 F 05/01/25 11:27 Pulse Rate 86 05/01/25 11:27 Respiratory Rate 16 05/01/25 11:27 Blood Pressure 120/74 05/01/25 11:27 Pulse Oximetry 99 05/01/25 11:27 Temperature 98.3 F 05/01/25 11:27 Pulse Rate 86 05/01/25 11:27 Respiratory Rate 16 05/01/25 11:27 Blood Pressure 120/74 05/01/25 11:27 Pulse Oximetry 99 05/01/25 11:27 <Fatimah Mora MD - Last Filed: 05/01/25 12:49> MDM - Chest Pain MDM Narrative Medical decision making narrative: ED COURSE AND MEDICAL DECISION MAKIN-year-old female presenting with chest pain; she reports prior history of this, negative workup from Cardiology other than possible inappropriate tachycardia for which she has a prescription for p.r.n. beta angy. EKG done in triage negative for acute ischemic changes. Cardiac workup is initiated. EKG: Performed in triage and interpreted by me. Normal sinus rhythm. Rate 80. Normal axis. OR normal. QRS duration normal. QTc normal. No pathologic Q waves. No ST segment elevation or depression to suggest acute ischemia. No RV strain pattern. HEART score is 0 with no acute ischemic changes on EKG and negative troponin making ACS unlikely. Wells low risk with negative PERC making PE unlikely. Presentation not consistent with dissection or aneurysm without radiation of pain or pulse deficits. CXR negative for mediastinal widening. No abdominal pain or signs of sepsis that would be concerning for esophageal perforation or mediastinitis. No cardiomegaly or JVD to suggest pericardial effusion/tamponade. Patient tells me that she does have a history of gastric bypass and reflux in the past, so I suspect this may be her symptoms, given that she describes as a vague discomfort, sometimes/usually in the left chest to back, without any neurovascular deficits so have very low concern for dissection. I will trial a course of Pepcid with a prescription, provided follow-up to Cardiology. On repeat evaluation just prior to discharge, the patient is no acute distress. I had a long discussion with the patient and with shared decision making, she is comfortable with outpatient management. She was given clear return instructions by myself in person as well as on discharge paperwork. Procedures: Pulse oximetry interpretation - not hypoxic. EKG interpretation. Review of medical records. <Fatimah Mora MD - Last Filed: 05/01/25 12:49> Lab Data Result diagrams: 05/01/25 11:18 05/01/25 11:18 <Ashleigh Jacobson APRN - Last Filed: 05/01/25 11:22> Labs: Lab Results 05/01/25 Range/Units 11:18 WBC 6.5 (4.5-10.0) K/mm3 RBC 4.67 (4.2-5.4) M/mm3 Hgb 13.6 (12.0-15.0) g/dL Hct 42.2 (37.0-47.0) % MCV 90.4 (80-100) fl MCH 29.1 (26-34) pg MCHC 32.2 (32-36) g/dl RDW 12.8 (11.5-14.5) % Plt Count 247 (150-375) k/mm3 MPV 8.6 (7.4-10.4) fl Immature Gran % (Auto) 0.2 (0-0.5) % Neut % (Auto) 49.3 (45.5-73.1) % Lymph % (Auto) 40.1 (18.3-44.2) % [place] % (Auto) 9.0 H (2.6-8.5) % Eos % (Auto) 0.6 (0-4.4) % Baso % (Auto) 0.8 (0.2-1.2) % Lymph # (Auto) 2.62 (0.9-3.2) K/mm3 [place] # (Auto) 0.6 (0.1-0.6) K/mm3 Eos # (Auto) 0.0 (0-0.3) K/mm3 Baso # (Auto) 0.1 (0.0-0.1) K/mm3 Abs Immat Gran (auto) 0.01 (0.00-0.031) K/mm3 Absolute Neuts (auto) 3.2 (1.3-6.7) K/mm3 Absolute Nucleated RBC 0.000 (0.0-0.012) K/mm3 Nucleated RBC % 0.0 (0.0-0.2) % PT 14.6 (11.1-14.7) Seconds INR 1.1 APTT 32.9 (22.3-36.8) Seconds Sodium 137 (137-145) mmol/L Potassium 3.7 (3.4-5.0) mmol/L Chloride 104 (98-107) mmol/L Carbon Dioxide 25 (22-30) mmol/L Anion Gap 8 (4-12) mmol/L BUN 7 (7-17) mg/dL Creatinine 0.71 (0.7-1.0) mg/dL Estim Creat Clear Calc 101 ml/min Estimated GFR > 60 (59 - ) Glucose 104 (65-110) mg/dL Calcium 9.0 (8.4-10.2) mg/dL Total Bilirubin 0.5 (0.2-1.3) mg/dL AST 30 (14-36) U/L ALT 21 (6-35) U/L Alkaline Phosphatase 63 (38-126) U/L Troponin I < 0.012 (0.000-0.034) ng/mL Total Protein 7.6 (6.3-8.2) g/dL Albumin 4.3 (3.5-5.1) g/dL Lipase 104 (23-300) U/L <Ashleigh Jacobson, SOCIOLOGY INSTRUCTOR - Last Filed: 05/01/25 11:22> Lab Results 05/01/25 Range/Units 11:18 WBC 6.5 (4.5-10.0) K/mm3 RBC 4.67 (4.2-5.4) M/mm3 Hgb 13.6 (12.0-15.0) g/dL Hct 42.2 (37.0-47.0) % MCV 90.4 (80-100) fl MCH 29.1 (26-34) pg MCHC 32.2 (32-36) g/dl RDW 12.8 (11.5-14.5) % Plt Count 247 (150-375) k/mm3 MPV 8.6 (7.4-10.4) fl Immature Gran % (Auto) 0.2 (0-0.5) % Neut % (Auto) 49.3 (45.5-73.1) % Lymph % (Auto) 40.1 (18.3-44.2) % Madison % (Auto) 9.0 H (2.6-8.5) % Eos % (Auto) 0.6 (0-4.4) % Baso % (Auto) 0.8 (0.2-1.2) % Lymph # (Auto) 2.62 (0.9-3.2) K/mm3 Madison # (Auto) 0.6 (0.1-0.6) K/mm3 Eos # (Auto) 0.0 (0-0.3) K/mm3 Baso # (Auto) 0.1 (0.0-0.1) K/mm3 Abs Immat Gran (auto) 0.01 (0.00-0.031) K/mm3 Absolute Neuts (auto) 3.2 (1.3-6.7) K/mm3 Absolute Nucleated RBC 0.000 (0.0-0.012) K/mm3 Nucleated RBC % 0.0 (0.0-0.2) % PT 14.6 (11.1-14.7) Seconds INR 1.1 APTT 32.9 (22.3-36.8) Seconds Sodium 137 (137-145) mmol/L Potassium 3.7 (3.4-5.0) mmol/L Chloride 104 (98-107) mmol/L Carbon Dioxide 25 (22-30) mmol/L Anion Gap 8 (4-12) mmol/L BUN 7 (7-17) mg/dL Creatinine 0.71 (0.7-1.0) mg/dL Estim Creat Clear Calc 101 ml/min Estimated GFR > 60 (59 - ) Glucose 104 (65-110) mg/dL Calcium 9.0 (8.4-10.2) mg/dL Total Bilirubin 0.5 (0.2-1.3) mg/dL AST 30 (14-36) U/L ALT 21 (6-35) U/L Alkaline Phosphatase 63 (38-126) U/L Troponin I < 0.012 (0.000-0.034) ng/mL Total Protein 7.6 (6.3-8.2) g/dL Albumin 4.3 (3.5-5.1) g/dL Lipase 104 (23-300) U/L <Fatimah Mora MD - Last Filed: 05/01/25 12:49> Discharge Plan Discharge Clinical Impression: Atypical chest pain <Ashleigh Jacobson APRN - Last Filed: 05/01/25 11:22> Patient Disposition: Home <Ashleigh Jacobson APRN - Last Filed: 05/01/25 11:22> Condition: Stable <Ashleigh Jacobson APRN - Last Filed: 05/01/25 11:22> Instructions: Chest Pain (ED) <Ashleigh Jacobson APRN - Last Filed: 05/01/25 11:22> Additional Instructions: Please follow up with a scarifier operator or a PCP; you can try the pepcid as prescribed and come back to the ER if your symptoms return or worsen. <Ashleigh Jacobson APRN - Last Filed: 05/01/25 11:22> Patient Language: Slovenian <Ashleigh Jacobson APRN - Last Filed: 05/01/25 11:22> Prescriptions: New famotidine 20 mg tablet 20 mg PO DAILY Qty: 30 0RF No Action omeprazole 20 mg capsule,delayed release(DR/EC) 20 mg PO BID Qty: 90 1RF potassium chloride 20 mEq packet 20 meq PO BID 5 Days Qty: 1 0RF <Ashleigh Jacobson APRN - Last Filed: 05/01/25 11:22> Follow-up/Referrals: Nithya,Shailesh Stoner MD [Non-Staff] - 2 Days PHYSICIAN,ELECTRIC ACCOUNTING MACHINE OPERATOR [Primary Care Provider] - <Ashleigh Jacobson APRN - Last Filed: 05/01/25 11:22>
--- OUTSIDE RECORDS SUMMARY | 2025-05-01 11:16 | XMS_ITS | Encounter Summary ---
Author Organization [facility] Address [address] [place] [address] Care Team Providers Care Field Trainer Name Role Phone Devora Hargrove MD Primary Care Provider [phone] Anaid Morales MD Primary Care Provider [phone] Elsa Alcaraz PRESIDENT AND CMO-LAND ECONOMIST Unavailable [phone] Encounter Details Date Type Department Care Team (Late Contact Info) Description 09/01/2020 Telephone [facility] Maternal & Care [address] [place] [address] Lizette Parks, [facility] Social History Tobacco Use Types Packs/Day Years Used Date Smoking Tobacco: Never Smokeless Tobacco: Never Alcohol Use Standard Drinks/Week Comments Not Currently 0 (1 standard drink = 0.6 oz pur e alcohol) Comments Yes Sex and Gender Information Value Date Recorded Sex Assigned at Female 10/24/2023 10:44 AM MANAGER ONCOLOGY Legal Sex Female 10:30 PM MANAGER ONCOLOGY Gender Identity Female 10/24/2023 10:44 AM MANAGER ONCOLOGY Sexual Orientation Straight 10/24/2023 10 :44 AM MANAGER ONCOLOGY COVID-19 Exposure Response Date Recorded In the last month, have you been in contact with someone who was confirmed or suspected to have Coronavirus / COVID-19? Unable to assess 09/04/2020 10:45 AM MANAGER ONCOLOGY documented as of this encounter Plan of Treatment Upcoming Encounters Date Type Department Care Team (Late Contact Info) Description 07/04/2025 10:30 AM CDT Clinical Support [facility] [address] [place] [address] 07/04/2025 11:00 AM CDT Office Visit [facility] [address] [place] [facility] [place] [address] Janet Fleming APRN-LAND ECONOMIST [address] [place] [address] 01/09/2026 10:00 AM CDT Office Visit [facility] [address] [place] [address] Janet Fleming APRN-LAND ECONOMIST [address] [place] [address] 01/09/2026 10:30 AM CDT Office Visit [facility] [address] [place] [address] Janet Fleming APRN-LAND ECONOMIST [address] [place] [address] documented as of this encounter Visit Diagnoses Not on filedocumented in this encounter Care Teams Field Trainer Relationship Specialty Start Date End Date Devora Hargrove MD [address] [place] [id number] PCP - General 12/04/20 08/02/23 Anaid Morales MD [address] [place] [address] PCP - General Family Medicine 08/03/23 Elsa Alcaraz APRN-LAND ECONOMIST [address] [place] [id number] PCP - Attributed-[employer] Medicaid [place] 12/31/17 documented as of this encounter
--- OUTSIDE RECORDS SUMMARY | 2025-05-01 11:16 | XMS_ITS | Clinical Summary ---
Author Organization [facility] Address [address] [place] [address] Care Team Providers Care Message And Delivery Service Pricer Name Role Phone Anaid Morales MD Primary Care Provi mike Allergies No known active allergies Medications busPIRone (BUSPAR) 7.5 mg tablet Take 7.5 mg by mouth 2 (two) times a day 08/12/2022 Active HYDROcodone-alley taminophen (NORCO) 5-325 mg per tabletIndicatio ns:Pain Take 1-2 tablets by mouth every 4 (four) hours as needed for pain Do not exceed 8 tablets/day. 15 tablet 11/26/2022 Active Active Problems Problem Noted Date Diagnosed Date Anemia 01/25/2023 Tonsillitis 09/18/2022 Acute pharyngitis 09/18/2022 Tinea corporis 09/18/2022 Encounters Date Type Department Care Team Description 02/12/2025 9:50 AM CDT Lab [address] [phone] from Last 3 Months Surgical History Surgery Date Site/Laterality Comments APPENDECTOMY Medical History Medical History Date Comments Obesity HLD (hyperlipidemia) Tachycardia GERD (gastroesophageal reflux disease) Vitamin D deficiency Endometriosis Social History Tobacco Use Types Packs/Day Years Used Date Smoking Tobacco: Never Smokeless Tobacco: Never Alcohol Use Standard Drinks/Week Comments Never 0 (1 standard drink = 0.6 oz pur e alcohol) Personal Safety Answer Date Recorded Have you ever been in or are you currently in a harmful physical or emotional relationship or is someone making you feel afraid or unsafe? Denies 01/12/2024 Comments No Sex and Gender Information Value Date Recorded Sex Assigned at Not on file Legal Sex Female 1:18 AM CDT Gender Identity Not on file Sexual Orientation Not on file Obstetrics History Para Term AB IAB SAB Ectopic Multiple Livin g Live Births 2 1 1 1 1 Date Outcome GA Total Labor Labor/2nd/3rd Weight Sex Type Anes PTL Marion A1 A5 Name Clin 2018 Term 39w 2d Vag-S pont Living Complications:None Last Filed Vital Signs Vital Sign Reading Time Taken Comments Blood Pressure 132/81 01/12/2024 6:49 PM CDT Pulse 110 01/12/2024 6:49 PM CDT Temperature 36.4 C (97.5 F) 01/12/2024 6:49 PM CDT Respiratory Rate 16 01/12/2024 6:49 PM CDT Oxygen Saturation 100% 01/12/2024 6:49 PM CDT Inhaled Oxygen Concentration - - Weight 113.9 kg (251 lb) 01/12/2024 6:49 PM CDT Height 175.3 cm (5' 9) 01/12/2024 6:49 PM CDT Body Mass Index 37.07 01/12/2024 6:49 PM CDT Plan of Treatment Health Maintenance Due Date Last Done Comments Cervical Cancer Screening 1990 Depression Screening 1990 Hepatitis C Screening 1990 Varicella Vaccines (1 of 2 - 13+ 2-dose series) 12/13/2003 Regular Well Visit/Exam 18-64 2008 HPV Vaccines (1 - 3-dose SCDM series) 2017 Influenza Vaccine (#1) 2025 , 09/07/2020, 07/22/2019 DTaP/Tdap/Td Vaccine (10 - Td or Tdap) 08/05/2031 08/05/2021, 12/03/2020, 09/07/2019, Additional history exists Hepatitis B Screening Completed 01/02/2003 , 07/18/2002, 05/23/2002 Pneumococcal vaccine <65 Aged Out No longer eligible based on patient's age to complete this topic Procedures Procedure Name Priority Date/Time Associated Diagnosis Comments EGFR Routine 02/12/2025 10:06 AM CDT DIFFERENTIAL AUTO Routine 02/12/2025 10: 06 AM CDT TSH Routine 02/12/2025 10:06 AM CDT TRANSFERRIN Routine 02/12/2025 10:06 AM CDT IRON PROFILE W/ IBC Routine 02/12/2025 1 0:06 AM CDT PHOSPHORUS Routine 02/12/2025 10:06 AM CDT PTH Routine 02/12/2025 10:06 AM CDT VITAMIN B1 Routine 02/12/2025 10:06 AM CDT FOLATE Routine 02/12/2025 10:06 AM CDT VITAMIN B12 Routine 02/12/2025 10:06 AM CDT VITAMIN D 25 HYDROXY Routine 02/12/2025 10:06 AM CDT MAGNESIUM Routine 02/12/2025 10:06 AM CDT LIPID PANEL Routine 02/12/2025 10:06 AM CDT FERRITIN Routine 02/12/2025 10:06 AM CDT COMPREHENSIVE METABOLIC PANEL Routine 02/12/2025 10:06 AM CDT CBC WITH AUTO DIFFERENTIAL Routine 02/12/2025 10:06 AM CDT from Last 3 Months Results * eGFR (02/12/2025 10:06 AM CDT) [facility] eGFR >90 >=60 mL/min/1. 73 m2 Comment: Interpretive Data Reference Interval Normal >/= 90 mL/min/1.73m2 Mildly decreased* 60 - 89 mL/min/1.73m2 Mildly to moderately decreased 45 - 59 mL/min/1.73m2 Moderately to severely decreased 30 - 44 mL/min/1.73m2 Severely decreased 15 - 29 mL/min/1.73m2 Kidney Failure < 15 mL/min/1.73m2 *Relative to young adult level Estimated glomerular filtration rate is determined by the 2020 CKD-EPI equation recommended by the National Kidney Foundation (A Unifying Approach to GFR Estimation: Recommendations of the NKF-ASK Task Force on Reassessing the Inclusion of Race in Diagnosing Kidney Disease, JASN 2020). The CKD-EPI equation should not be used for patients with unstable renal function and has not been validated in children and those over 70. Current interpretive data was last reviewed 2021. Blood 02/12/2025 10:0 6 AM CDT 02/12/2025 10:35 AM CDT us Mireille Mccann MD LAB BLOOD ORDERABLES Fin al Result [facility] ([place]) 1 [facility] Department [place] [address] * Differential, auto (02/12/2025 10:06 AM CDT) Neutrophil abs 2.59 1.50 - 6.50 K/cumm Imm gran abs 0.01 0.00 - 0.10 K/cumm [facility] ([place]) Lymphocyte abs 2.21 0.80 - 3.30 K/cumm [facility] ([place]) Monocyte abs 0.48 0.20 - 0.80 K/cumm [facility] ([place]) Eosinophil abs 0.09 0.00 - 0.50 K/cumm [facility] ([place]) Basophil abs 0.04 0.00 - 0.10 K/cumm [facility] ([place]) Neutrophil pct 47.7 % [facility] ([place]) Comment: Interpretive Data Percent cell count reference ranges are not reported, since discordance with absolute values may lead to misinterpretation of CBC data. Current Interpretive Data was last revised on 2018. Imm gran pct 0.2 % [facility] ([place]) Comment: Interpretive Data Percent cell count reference ranges are not reported, since discordance with absolute values may lead to misinterpretation of CBC data. Current Interpretive Data was last revised on 2018. Lymphocyte pct 40.8 % [facility] ([place]) Comment: Interpretive Data Percent cell count reference ranges are not reported, since discordance with absolute values may lead to misinterpretation of CBC data. Current Interpretive Data was last revised on 2018. Monocyte pct 8.9 % [facility] ([place]) Comment: Interpretive Data Percent cell count reference ranges are not reported, since discordance with absolute values may lead to misinterpretation of CBC data. Current Interpretive Data was last revised on 2018. Eosinophil pct 1.7 % [facility] ([place]) Comment: Interpretive Data Percent cell count reference ranges are not reported, since discordance with absolute values may lead to misinterpretation of CBC data. Current Interpretive Data was last revised on 2018. Basophil pct 0.7 % [facility] ([place]) Comment: Interpretive Data Percent cell count reference ranges are not reported, since discordance with absolute values may lead to misinterpretation of CBC data. Current Interpretive Data was last revised on 2018. Blood 02/12/2025 10:0 6 AM CDT 02/12/2025 10:35 AM CDT Mireille Mccann MD LAB BLOOD ORDERABLES Rahul al Result [facility] ([place]) 1 [facility] Department [place] [address] * Iron profile w/ IBC (02/12/2025 10:06 AM CDT) Iron 67 35 - 145 mcg/dL TIBC 250 250 - 400 mcg/dL [facility] ([place]) Transferrin saturation 27 20 - 50 % [facility] ([place]) Blood 02/12/2025 10:0 6 AM CDT 02/12/2025 10:35 AM CDT Mireille Mccann MD LAB BLOOD ORDERABLES Fin al Result [facility] ([place]) 1 [facility] [place] [address] * (ABNORMAL) CBC with auto differential (02/12/2025 10:06 AM CDT) WBC 5.42 3.80 - 9.90 K/cumm Hgb 14.4 11.9 - 15.5 g/dL [facility] ([place]) Hct 43.8 35.6 - 45.5 % [facility] ([place]) Plt 289 150 - 400 K/cumm [facility] ([place]) MPV 8.9(L) 9.1 - 12.3 fL [facility] ([place]) RBC 4.83 3.90 - 5.20 M/cumm [facility] ([place]) MCV 90.7 81.3 - 96.4 fL [facility] ([place]) MCH 29.8 27.1 - 33.3 pg [facility] ([place]) MCHC 32.9 32.3 - 35.7 g/dL [facility] ([place]) RDW CV 12.8 11.1 - 14.9 % [facility] ([place]) RDW SD 42.5 35.7 - 48.1 fL [facility] ([place]) NRBC abs 0.00 0.00 - 0.01 K/cumm [facility] ([place]) Blood 02/12/2025 10:0 6 AM CDT 02/12/2025 10:35 AM CDT us Mireille Mccann MD LAB BLOOD ORDERABLES Fin al Result [facility] ([place]) 1 [facility] [place] [address] * (ABNORMAL) Vitamin D 25 hydroxy (02/12/2025 10:06 AM CDT) Vitamin D 25-OH 24(L) 30 - 80 ng/mL Blood 02/12/2025 10:0 6 AM CDT 02/12/2025 10:35 AM CDT Mireille Mccann MD LAB BLOOD ORDERABLES Fin al Result Performing Organization Address [facility] Co de Phone Number [facility] GuevaraHO[facility]) 1 [facility] [place] [address] * Transferrin (02/12/2025 10:06 AM CDT) Transferrin 207 200 - 360 mg/dL Comment:Testing performed by : [facility], [address] [place] [address], [id number] Blood 02/12/2025 10:0 6 AM CDT 02/12/2025 4:19 PM CDT Mireille Mccann MD LAB BLOOD ORDERABLES Fin al Result Performing Organization Address [facility] de Phone Number [facility]SS[facility] GuevaraHOLLOWAY) 1 [facility] [place] [address] * TSH (02/12/2025 10:06 AM CDT) Thyroid Stimulating Hormone 2.76 0.30 - 4.20 mcIUnit/mL Blood 02/12/2025 10:0 6 AM CDT 02/12/2025 10:35 AM CDT Mireille Mccann MD LAB BLOOD ORDERABLES Fin al Result Performing Organization Address [facility] Co de Phone Number [facility] ([place]) 1 [facility] [place] [address] * Vitamin B1 (02/12/2025 10:06 AM CDT) Thiamine (Vit B1) 103 70 - 180 nmol/L [facility] Comment: ADDITIONAL INFORMATION This test was developed and its performance characteristics determined by [facility] in a manner consistent with CLIA requirements. This test has not been cleared or approved by the U.S. Food and Drug Administration. Test Performed by: [facility] [address] [place] [address] Sql Developer: Murray Gagnon Ph.D.; CLIA# [id number] Blood 02/12/2025 10:0 6 AM CDT 02/12/2025 10:36 AM CDT Mireille Mccann MD LAB BLOOD ORDERABLES Fin al Result [facility] ([place]) [address] [place] [address] [facility] * Phosphorus (02/12/2025 10:06 AM CDT) Phosphorus, pl 2.5 2.3 - 4.5 mg/dL Blood 02/12/2025 10:0 6 AM CDT 02/12/2025 10:35 AM CDT Mireille Mccann MD LAB BLOOD ORDERABLES Fin al Result Performing Organization Address [facility] Co de Phone Number [facility] ([place]) 1 [facility] [place] [address] * (ABNORMAL) PTH (02/12/2025 10:06 AM CDT) PTH 73(H) 15 - 65 pg/mL Blood 02/12/2025 10:0 6 AM CDT 02/12/2025 10:35 AM CDT Mireille Mccann MD LAB BLOOD ORDERABLES Fin al Result [facility] ([place]) 1 [facility] [place] [address] * Magnesium (02/12/2025 10:06 AM CDT) Magnesium 2.0 1.4 - 2.5 mg/dL Blood 02/12/2025 10:0 6 AM CDT 02/12/2025 10:35 AM CDT Mireille Mccann MD LAB BLOOD ORDERABLES Fin al Result Performing Organization Address City/[facility] Co de Phone Number [facility] ([place]) [address] [place] [address] [place] [address] * Folate (02/12/2025 10:06 AM CDT) Pathologist [facility] Folic acid 6.7 >=5.0 ng/mL Comment:Slightly Hemolyzed S pecimen. Results may be affected. Blood 02/12/2025 10:0 6 AM CDT 02/12/2025 10:35 AM CDT Mireille Mccann MD LAB BLOOD ORDERABLES Fin al Result Performing Organization Address [facility] Co de Phone Number [facility] ([place]) 1 [facility] [place] [address] * Ferritin (02/12/2025 10:06 AM CDT) Pathologist [facility] Ferritin 51 15 - 150 ng/mL Blood 02/12/2025 10:0 6 AM CDT 02/12/2025 10:35 AM CDT Mireille Mccann MD LAB BLOOD ORDERABLES Fin al Result Performing Organization Address [facility] Co de Phone Number [facility] ([place]) 1 [facility] [place] [address] * Vitamin B12 (02/12/2025 10:06 AM CDT) Vitamin B12 568 230 - 1,250 pg/mL Blood 02/12/2025 10:0 6 AM CDT 02/12/2025 10:35 AM CDT us Mireille Mccann MD LAB BLOOD ORDERABLES Fin al Result [facility] ([place]) 1 [facility] Department [place] [address] * Lipid panel (02/12/2025 10:06 AM CDT) Cholesterol 162 30 - 199 mg/dL Comment: Interpretive Data Ages < or = 19 years Acceptable: <170 mg/dL Borderline high: 170-199 mg/dL High: >or= 200 mg/dL Ages > or = 20 years Desirable: <200 mg/dL Borderline high: 200-239 mg/dL High: >or= 240 mg/dL Literature References: 1. Expert Panel on Integrated Guidelines for Cardiovascular Health and Risk Reduction in Children and Adolescents. Pediatrics 2011;128:S213 2. NCEP Expert Panel. Circulation 2004;110:227 Current Interpretive Data was last revised on 2018. Triglycerides 67 <=149 mg/dL [facility] ([place]) Comment: Interpretive Data Ages < or = 9 years Acceptable: <75 mg/dL Borderline high: 75-99 mg/dL High: >or= 100 mg/dL Ages 10 to 20 years Acceptable: <90 mg/dL Borderline high: 90-129 mg/dL High: >or= 130 mg/dL Ages > or = 20 years Desirable: <150 mg/dL Borderline high: 150-199 mg/dL High: 200-499 mg/dL Very high: >or= 499 mg/dL Literature References: 1. Expert Panel on Integrated Guidelines for Cardiovascular Health and Risk Reduction in Children and Adolescents. Pediatrics 2011;128:S213 2. NCEP Expert Panel. Circulation 2004;110:227 Current Interpretive Data was last revised on 2018. HDL 51 >=40 mg/dL [facility] ([place]) Comment: Interpretive Data Ages < or = 19 years Acceptable: >45 mg/dL Borderline low: 40-45 mg/dL Low: <40 mg/dL Ages > or = 20 years Desirable: >or= 60 mg/dL Low: <40 mg/dL Literature References: 1. Expert Panel on Integrated Guidelines for Cardiovascular Health and Risk Reduction in Children and Adolescents. Pediatrics 2011;128:S213 2. NCEP Expert Panel. Circulation 2004;110:227 Current Interpretive Data was last revised on 2018. LDL, calculated 98 <=129 mg/dL [facility] ([place]) Comment: Interpretive Data Ages < or = 19 years Acceptable: <110 mg/dL Borderline high: 110-129 mg/dL High: >or= 130 mg/dL Ages > or = 20 years Optimal: <100 mg/dL Near optimal: 100-129 mg/dL Borderline high: 130-159 mg/dL High: >160 mg/dL Calculated using the Ariel LDL-C estimating equation. This equation was implemented on 2024. Prior to this date LDL-C was estimated using the Friedewald equation. Literature References: 1. Expert Panel on Integrated Guidelines for Cardiovascular Health and Risk Reduction in Children and Adolescents. Pediatrics 2011;128:S213 2. NCEP Expert Panel. Circulation 2004;110:227 3. Ariel Stevens et al. PRADEEP Cardiol. 2020 January 30;5(5):540-548. doi: 10.1001/jamacardio.2020.0013 Current Interpretive Data was last revised on 2024. Non-HDL Cholesterol 111 mg/dL [facility] CAMPBELL) Comment: Interpretive Data Ages < or = 19 years Acceptable: <120 mg/dL Borderline high: 120-144 mg/dL High: >145 mg/dL Ages > or = 20 years When triglycerides are >200 mg/dL, Non-HDL cholesterol is a secondary target of therapy with treatment goals that are 30 mg/dL greater than the LDL cholesterol target. Literature References: 1. Expert Panel on Integrated Guidelines for Cardiovascular Health and Risk Reduction in Children and Adolescents. Pediatrics 2011;128:S213 2. NCEP Expert Panel. Circulation 2004;110:227 Current Interpretive Data was last revised on 2018. Chol/HDL ratio 3 DEMARCO CAMPBELL) Blood 02/12/2025 10:0 6 AM CDT 02/12/2025 10:35 AM CDT Mireille Mccann MD LAB BLOOD ORDERABLES Fin al Result [facility] ([place]) 1 [facility] Department [place] [address] * Comprehensive metabolic panel (02/12/2025 10:06 AM CDT) Sodium 137 135 - 145 mmol/L Potassium, pl 4.2 3.3 - 4.9 mmol/L [facility] ([place]) Chloride 102 97 - 110 mmol/L [facility] ([place]) CO2 24 22 - 32 mmol/L [facility] ([place]) Anion gap 11 2 - 15 mmol/L [facility] ([place]) BUN 7 6 - 25 mg/dL [facility] ([place]) Creatinine 0.69 0.60 - 1.10 mg/dL [facility] ([place]) Glucose 91 70 - 199 mg/dL [facility] ([place]) Comment: Interpretive Data Fasting glucose >/= 126 mg/dl is diagnostic for diabetes. Fasting is defined as no caloric intake for at least 8 hours. Fasting glucose between 100 mg/dl to 125 mg/dl is diagnostic of prediabetes. In a patient with classic symptoms of hyperglycemia or hyperglycemic crisis, a random glucose >/= 200 mg/dl is diagnostic for diabetes. In the absence of unequivocal hyperglycemia, results should be confirmed by repeat testing. The classification and Diagnosis of Diabetes Diabetes Care 2021; 46: S19-S40. Current interpretive data was last revised 2022. Calcium 9.3 8.5 - 10.3 mg/dL [facility] ([place]) Bilirubin, total 0.3 0.1 - 1.2 mg/dL [facility] ([place]) Protein, pl 7.5 6.5 - 8.5 g/dL [facility] ([place]) Albumin 4.2 3.5 - 5.0 g/dL [facility] ([place]) Alk phos 74 40 - 130 Units/L [facility] ([place]) ALT 15 7 - 45 Units/L [facility] ([place]) AST 21 10 - 45 Units/L [facility] ([place]) Blood 02/12/2025 10:0 6 AM CDT 02/12/2025 10:35 AM CDT us Mireille Mccann MD LAB BLOOD ORDERABLES Fin al Result [facility] ([place]) 1 [facility] [place] [address] from Last 3 Months Insurance PLAN PLAN Care Teams Message And Delivery Service Pricer Relationship Specialty Start Date End Date Anaid Morales MD PCP - General Family Medicine 07/27/22
--- OUTSIDE RECORDS SUMMARY | 2025-05-01 11:16 | XMS_ITS | Clinical Summary ---
Author Organization [facility] Address [address] [place] [address] Care Team Providers Care Hand Spring Repairer Helper Name Role Phone None, Provider MD Primary Care Provider Unavaila ble Allergies No known active allergies Medications vitamin, low iron, ( VITAMIN WITH IRON) 27-0.8 MG tablet Take 1 tablet by mouth daily. Active aspirin 81 MG chewable tablet Chew 162 mg by mouth daily. Active folic acid 1 MG tablet Take 1 mg by mouth daily. Active Social History Tobacco Use Types Packs/Day Years Used Date Smoking Tobacco: Never Smokeless Tobacco: Never Alcohol Use Standard Drinks/Week Comments Never 0 (1 standard drink = 0.6 oz pur e alcohol) Humiliation, Afraid, Rape, and Kick questionnair e Answer Date Recorded Within the last year, have y ou been afraid of your partner or ex-partner? No 09/27/2020 Within the last year, have y ou been humiliated or emotionally abused in other ways by your partner or ex-partner? No Within the last year, have y ou been kicked, hit, slapped, or otherwise physically hurt by your partner or ex-partner? No 09/27/2020 Within the last year, have y ou been raped or forced to have any kind of sexual activity by your partner or ex-partner? No 09/27/2020 AUDIT-C Answer Date Recorded Q1: How often do you have a drink containing alc ohol? Never 09/27/2020 Average Number of Drinks Not on file 020 Frequency of Binge Drinking Not on file 09/02 Comments No Sex and Gender Information Value Date Recorded Sex Assigned at Not on file Legal Sex Female 12:52 PM SIGNAL WIRER Gender Identity Not on file Sexual Orientation Not on file Last Filed Vital Signs Vital Sign Reading Time Taken Comments Blood Pressure 94/54 09/27/2020 3:45 PM SIGNAL WIRER Pulse 102 09/27/2020 3:45 PM SIGNAL WIRER Temperature 37.2 C (99 F) 09/27/2020 1:25 PM SIGNAL WIRER Respiratory Rate 16 09/27/2020 1:25 PM SIGNAL WIRER Oxygen Saturation - - Inhaled Oxygen Concentration - - Weight 128.8 kg (284 lb) 11/27/2020 11:24 AM SIGNAL WIRER Height 175.3 cm (5' 9) 11/27/2020 11:24 AM SIGNAL WIRER Body Mass Index 41.94 11/27/2020 11:24 AM SIGNAL WIRER Plan of Treatment Health Maintenance Due Date Last Done Comments Cervical Cancer Screening Pap Smear (Age 30 to 64) Every 3 Years 1990 Annual Physical 1993 Hepatitis C 2008 Hepatitis B Vaccines (1 of 3 - 19+ 3-dose series) 2009 HPV Vaccines (1 - 3-dose SCDM series) 2017 Cervical Cancer Screening Pap with HPV Testing (Age 30 to 64) Every 5 Years 2020 Cervical Cancer Screening with HPV 2020 COVID-19 Vaccine ( season) 2024 DTaP, Tdap and Td Vaccines (3 - Td or Tdap) 12/03/2030 12/03/2020, 09/07/2019, 05/20/1996, Additional history exists Meningococcal B Vaccine Aged Out No l onger eligible based on patient's age to complete this topic Meningococcal Vaccine Aged Out No sarwat shama eligible based on patient's age to complete this topic Pneumococcal Vaccine: Pediatrics (0 to 5 Years) and At-Risk Patients (6 to 49 Years) Aged Out No longer eligible based on patient's age to complete this topic RSV Immunizations Under 20 Months Aged Out No longer eligible based on patient's age to complete this topic [place] [address] [place] [address] C/O PROVIDER SERVICES [employer] [place] [id number] Care Teams Hand Spring Repairer Helper Relationship Specialty Start Date End Date None, Provider, PCP - General 11/27/20
--- OUTSIDE RECORDS SUMMARY | 2025-05-01 11:16 | XMS_ITS | Clinical Summary ---
Author Organization [facility] Address [address] [place] [address] Care Team Providers Care Civilian Jail Officer Name Role Phone Anaid Morales MD Primary Care Provider [phone] PeriElsa coy APRN-SENIOR COST ACCOUNTANT Unavailable [phone] Source Comments [facility],non-owned Affiliates and Associated Physician Practices is amultiple site organization consisting of ambulatory clinics and hospital sitesin [place], [place], [place] and [place]. This disclosure is being madepursuant to the Care Everywhere program and may not contain all information available regarding this patient. Last updated 18.[facility] Allergies No known active allergies Medications * Be aware that medications may not be up to date on this document. Alwaysverify current medications with the patient. ferrous sulfate EC 325 (65 Fe) MG tablet Take 1 (one) tablet by mouth once daily 2 Active multivitamin daily tablet Take 1 (one) tablet by mouth 2 times daily Bariatric chew Active thiamine (Vitamin B-1) 100 MG tablet Take 1 (one) tablet by mouth 2 times daily 60 tablet 4 Active Additional Information Patient not taking.Reported on 01/24/2025 Cyanocobalamin (VITAMIN B 12 PO) Active CALCIUM CITRATE PO Take 500 mg by mouth Active vitamin D, ergocalciferol, (Drisdol) 1.25 MG (59241 UT) capsuleIndicati ons:Vitamin D Deficiency Take 1 (one) capsule by mouth every 7 days (once a week) Reasons: Vitamin D Deficiency 4 capsule 3 5 Active Active Problems Problem Noted Date Diagnosed Date Morbid obesity 01/02/2024 Vaginal delivery 12/04/2020 complicated by lung lesion, fetu s 2 10/15/2020 Obesity, Class III, BMI 40-49.9 (morbid obesity) 10/15/2020 Monochorionic diamniotic twin gestation in first trimester 06/19/2020 Encounter for ultrasound 06/19/2020 Second 06/18/2020 Resolved Problems Problem Noted Date Diagnosed Date Resolved Date Depression screen - initial 10/15/20 10/15/2020 12/07/2020 Overview (11/12/2020): 10/15/2020 Alexandria Rios was screened for depression using the [place] Depression Scale (EPDS) at her [facility] initial evaluation on 10/15/2020. Her initial score at baseline was 5. Based off of her score of 5, Alexandria does not warrant follow up. Patient will continue to be screened throughout , at intervals no closer than two weeks, for continued surveillance and early identification of depression until delivery. Patient reports mental health history. Diagnoses include depression, depression, anxiety. 11/12/20 EPDS follow up score=5 abnormality in pregnan cy - MC/DA twins, twin B chest mass 09/18/2020 12/07/2020 Overview (11/16/2020): Images from the original note were not included. [facility] PATIENT--PLEASE CALL [phone] (ex 2) IF TRIAGED OR ADMITTED Care Provider: Dr. Chandler at [facility] consultants involved: RN- Babar; MFM- Dr. Parekh; Pediatric Surgery- Dr. Balderas and Tristan Perez APRN Diagnosis: Monochorionic/Diamniotic Twins; Twin B: A right CPAM - CVR is 0.47 (on 11/12/20 US - decreased from previous visit). 09/02/2020: echocardiograms of both twins show normal cardiac anatomy. Planned surveillance: Initial [facility] 10/15/20. Return to [facility] 11/12/20 for US/consults. Weekly ultrasound for testing/TTTS screening;. CVR evaluations every 2 weeks at least. Continue routine OB care with primary OB. Released from [facility] 11/12/2020 Delivery location: planning [facility] Delivery mode: Per usual OB indications Desired Delivery GA: 36-37 weeks for uncomplicated monochorionic twin gestation (or sooner as indicated) follow up: per surgery: If the baby remains asymptomatic postnatally, then we will follow up in clinic with a CT chest planned at around 3 months with a plan for resection at around 6 months of age. Cnc Milling Machine Operator: Dr. Reynoso in [place] Autopsy indicated: Genetics note: Low risk NIPT (monozygotic twins; predicted female) Social Media Assistant Concerns: 10/15/2020-Patient with history of anxiety, depression and PPD- no medications. Care plan based on evaluation and is subject to change based on assessment. See Images or Cardiac under Chart Review for US/ ECHO/ MRI reports. Encounters Date Type Department Care Team Description 03/03/2025 Telephone [facility] [address] [place] [address] Alexandria Gastelum RN Results 02/18/2025 Orders Only [facility] [address] [place] [phone] Janet Fleming APRN-CNP Hyperparathyroidism due to vitamin D deficiency (HCC) ; S/P gastric bypass; Overweight (BMI 25.0-29.9); Bariatric surgery status; Vitamin D deficiency 02/14/2025 Orders Only [facility] [address] [place] [phone] Janet Fleming APRN-CNP S/P gastric bypass; Overweight (BMI 25.0-29.9); Bariatric surgery status; Dizziness, nonspecific; Vitamin D deficiency; Hyperparathyroidism due to vitamin D deficiency (HCC); Iron deficiency 02/13/2025 Orders Only [facility] [address] [place] [address] Fleming, Janet R, [employer]-SENIOR COST ACCOUNTANT Vitamin D deficiency ; Hyperparathyroidism due to vitamin D deficiency (HCC) from Last 3 Months Immunizations Immunization Administration Dates Next Due MMR 12/03/2020() TDAP (7yrs+) 12/03/2020 Family History Medical History Relation Name Comments Cancer Maternal Grandmother Relation Name Status Comments Maternal Grandmother Social History Tobacco Use Types Packs/Day Years Used Date Smoking Tobacco: Never Smokeless Tobacco: Never Tobacco Cessation:Counseling Given: Not Answered Alcohol Use Standard Drinks/Week Comments Not Currently 0 (1 standard drink = 0.6 oz pur e alcohol) occ AUDIT-C Answer Date Recorded Q1: How often do you have a drink containing alcohol? Never 01/02/2024 Q2: How many drinks containi ng alcohol do you have on a typical day when you are drinking? Patient does not drink Q3: How often do you have si x or more drinks on one occasion? Never 01/02/2024 Overall Financial Resource Strain (CARDIA) Answe r Date Recorded How hard is it for you to pa y for the very basics like food, housing, medical care, and heating? Not hard at all 01/03/2024 PHQ-2 Answer Date Recorded Patient Health Questionnaire-2 Score 0 01/24/2025 [facility] - Occupational Stress Questionnaire Answer Date Recorded Do you feel stress - tense, restless, nervous, or anxious, or unable to sleep at night because your mind is troubled all the time - these days? Only a little 01/03/2024 Hunger Vital Sign Answer Date Recorded Within the past 12 months, y ou worried that your food would run out before you got the money to buy more. Never true 01/03/20 24 Within the past 12 months, t he food you bought just didn't last and you didn't have money to get more. Never true 01/03/2024 PRAPARE - Transportation Answer Date Re corded In the past 12 months, has l ack of transportation kept you from medical appointments or from getting medications? No 12/2023 In the past 12 months, has l ack of transportation kept you from meetings, work, or from getting things needed for daily living? No 01/03/2024 Housing Stability Vital Sign Answer Malik e Recorded In the last 12 months, was t here a time when you were not able to pay the mortgage or rent on time? No 01/03/2024 In the last 12 months, how many places have you lived? 1 01/03/2024 In the last 12 months, was t here a time when you did not have a steady place to sleep or slept in a fpc (including now)? No 01/03/2024 Comments No Sex and Gender Information Value Date Recorded Sex Assigned at Female 10/24/2023 10:44 AM PLATFORM MATERIAL HANDLING SUPERVISOR Legal Sex Female 10:30 PM PLATFORM MATERIAL HANDLING SUPERVISOR Gender Identity Female 10/24/2023 10:44 AM PLATFORM MATERIAL HANDLING SUPERVISOR Sexual Orientation Straight 10/24/2023 10 :44 AM PLATFORM MATERIAL HANDLING SUPERVISOR Last Filed Vital Signs Vital Sign Reading Time Taken Comments Blood Pressure 100/66 01/24/2025 11:06 AM CDT Pulse 80 01/24/2025 11:06 AM CDT Temperature 36.5 C (97.7 F) 01/24/2025 11:06 AM CDT Respiratory Rate 18 01/24/2025 11:0 6 AM CDT Oxygen Saturation 97% 01/24/2025 11: 06 AM CDT Inhaled Oxygen Concentration - - Weight 83.4 kg (183 lb 12.8 oz) 025 11:06 AM CDT Height 174 cm (5' 8.5) 01/24/2025 11:0 6 AM CDT Body Mass Index 27.54 01/24/2025 11:06 AM CDT Plan of Treatment Upcoming Encounters Date Type Department Care Team (Late st Contact Info) Description 07/04/2025 10:30 AM CDT Clinical Support [facility] Weight [facility] [address] [place] [phone] 07/04/2025 11:00 AM CDT Office Visit [facility] [address] [place] [phone] Janet Fleming, [employer]-SENIOR COST ACCOUNTANT [address] [place] [address] 01/09/2026 10:00 AM CDT Office Visit [facility] [address] [place] [phone] Janet Fleming, [employer]-SENIOR COST ACCOUNTANT [address] [place] [address] 01/09/2026 10:30 AM CDT Office Visit [facility] [address] [place] [address] Janet Fleming [employer]-SENIOR COST ACCOUNTANT [address] [place] [address] Health Maintenance Due Date Last Done Comments HIV SCREENING 2005 HEPATITIS C SCREENING 12/07/2008 HEPATITIS B VACCINE (1 of 3 - 19+ 3-dose series) 2009 PAP SMEAR 12/13/2011 HPV VACCINE (1 - 3-dose SCDM series) 2017 COVID-19 VACCINE (3 - 2023-2 5 season) 2024 10/10/2021, 05/09/2021 INFLUENZA VACCINE (#1) 2025 , 09/07/2020, 07/22/2019 DTAP/TDAP/TD VACCINES (2 - T d or Tdap) 12/03/2030 12/03/2020 ZOSTER VACCINE (1 of 2) 2040 DEPRESSION SCREENING Completed 01/24/2025, 11/15/2023 HIB VACCINE Aged Out No longer eligi ble based on patient's age to complete this topic MENINGOCOCCAL (Group B) VACCINE SHARED DECISION-MAKING Aged Out No longer eligible based on patient's age to complete this topic MENINGOCOCCAL GROUPS A/C/Y/W VACCINE Aged Out No longer eligible b ased on patient's age to complete this topic PNEUMOCOCCAL VACCINE Aged Out No long er eligible based on patient's age to complete this topic Medical Devices Implanted Type Area Manager Meat Device Identifier Shelf Expiration Date Model / Serial / Lot Kit Tissue Clsr Duo Tssl 1 Prefl Syr - [id number] Implanted:Qty : 1 on 01/02/2024 by Mireille Mccann MD at [facility] N/A: [employer] [id number] / / [id number] Procedures Procedure Name Priority Date/Time Associated Diagnosis Comments VITAMIN B1 Routine 02/12/2025 S/P gastric bypass Overweight (BMI 25.0-29.9) Bariatric surgery status PHOSPHORUS BLOOD Routine 02/12/2025 S/P gastric bypass Overweight (BMI 25.0-29.9) Bariatric surgery status MAGNESIUM BLOOD Routine 02/12/2025 S/P gastric bypass Overweight (BMI 25.0-29.9) Bariatric surgery status VITAMIN B12 FOLATE PANEL Routine 02/12/2025 S/P gastric bypass Iron deficiency Overweight (BMI 25.0-29.9) Bariatric surgery status FERRITIN Routine 02/12/2025 S/P gastric bypass Iron deficiency Overweight (BMI 25.0-29.9) Bariatric surgery status IRON + TRANSFERRIN PANEL Routine 02/12/2025 S/P gastric bypass Iron deficiency Overweight (BMI 25.0-29.9) Bariatric surgery status CBC W AUTO DIFFERENTIAL Routine 02/12/2025 S/P gastric bypass Iron deficiency Overweight (BMI 25.0-29.9) Bariatric surgery status VITAMIN D 25-HYDROXY Routine 02/12/2025 S/P gastric bypass Vitamin D deficiency Overweight (BMI 25.0-29.9) Bariatric surgery status PTH INTACT+CALCIUM Routine 02/12/2025 Vitamin D deficiency Hyperparathyroidism due to vitamin D deficiency (HCC) TSH Routine 02/12/2025 Dizziness, nonspecific S/P gastric bypass Overweight (BMI 25.0-29.9) Bariatric surgery status LIPID PROFILE Routine 02/12/2025 S/P gastric bypass Overweight (BMI 25.0-29.9) Bariatric surgery status COMPREHENSIVE METABOLIC PANEL Routine 02/12/2025 S/P gastric bypass Overweight (BMI 25.0-29.9) Bariatric surgery status from Last 3 Months Results * PTH INTACT W/ CALCIUM (02/12/2025) Blood BLOOD SPECIMEN / Unknown 02/12/2025 Janet Perez Bernadette [facility] - CHEMISTRY ORDERABL ES Final Result OTHER LAB * VITAMIN B1 (02/12/2025) Blood BLOOD SPECIMEN / Unknown 02/12/2025 Janet Perez Bernadette [facility] - CHEMISTRY ORDERABL ES Final Result Performing Organization Address City/[facility] Co de Phone Number OTHER LAB * VITAMIN D 25-HYDROXY (02/12/2025) Blood BLOOD SPECIMEN / Unknown 02/12/2025 Janet R Bernadette [facility] - CHEMISTRY ORDERABL ES Final Result OTHER LAB * CBC WITH DIFFERENTIAL (02/12/2025) Blood BLOOD SPECIMEN / Unknown 02/12/2025 Janet R Bernadette [facility] - HEMATOLOGY ORDERAB LES Final Result OTHER LAB * COMPREHENSIVE METABOLIC PANEL (02/12/2025) Blood BLOOD SPECIMEN / Unknown 02/12/2025 [facility] CHE[facility] ORDERABL ES Final Result OTHER LAB * PHOSPHORUS BLOOD (02/12/2025) Blood BLOOD SPECIMEN / Unknown 02/12/2025 Janet Fleming [facility] CHE[facility]Y ORDERABL ES Final Result OTHER LAB * MAGNESIUM BLOOD (02/12/2025) Blood BLOOD SPECIMEN / Unknown 02/12/2025 Janet Fleming [facility] - CHEMISTRY ORDERABL ES Final Result OTHER LAB * VITAMIN B12 FOLATE PANEL (02/12/2025) Blood BLOOD SPECIMEN / Unknown 02/12/2025 Janet Fleming [employer] - CHEMISTRY ORDERABL ES Final Result Performing Organization Address City/[facility]/ZIP Co de Phone Number OTHER LAB * TSH (02/12/2025) Blood BLOOD SPECIMEN / Unknown 02/12/2025 Janet Fleming [employer] - CHEMISTRY ORDERABL ES Final Result Performing Organization Address City/[facility]/ZIP Co de Phone Number OTHER LAB * IRON + TRANSFERRIN PANEL (02/12/2025) Blood BLOOD SPECIMEN / Unknown 02/12/2025 Janet Fleming [employer] - CHEMISTRY ORDERABL ES Final Result OTHER LAB * FERRITIN (02/12/2025) Blood BLOOD SPECIMEN / Unknown 02/12/2025 Janet Fleming [employer]-SENIOR COST ACCOUNTANT LAB - CHEMISTRY ORDERABL ES Final Result OTHER LAB * LIPID PROFILE (02/12/2025) Blood BLOOD SPECIMEN / Unknown 02/12/2025 Janet Fleming [employer]-SENIOR COST ACCOUNTANT LAB - CHEMISTRY ORDERABL ES Final Result OTHER LAB from Last 3 Months Insurance [facility] MEDICAID [facility] MEDICAID Advance Directives * Full Code (Latest Code Status on File) Date Activated Date Inactivated Comments 01/02/2024 2:58 PM 01/04/2024 3:18 PM * Full Code Date Activated Date Inactivated Comments 12/02/2020 9:26 AM 12/04/2020 12:51 PM * Full Code Date Activated Date Inactivated Comments 12/02/2020 4:20 AM 12/02/2020 9:26 AM * Full Code Date Activated Date Inactivated Comments 11/30/2020 6:33 PM 11/30/2020 10:33 PM Care Teams Civilian Jail Officer Relationship Specialty Start Date End Date Anaid Morales MD [address] [place] [address] PCP - General Family Medicine 08/03/23 Elsa Alcaraz APRN-SENIOR COST ACCOUNTANT [address] [place] [address] PCP - Attributed-[place] Medicaid [place] 12/31/17
--- OUTSIDE RECORDS SUMMARY | 2025-05-01 11:16 | XMS_ITS | Clinical Summary ---
Author Organization [facility] Address [address], [facility] [address] [place] [address] Phone Care Team Providers Care Digital Production Operator Name Role Phone Severino Huertas MD Primary Care Provider [phone] Geovanny Kelsey MD Unavailable [phone] Allergies No known active allergies Medications ferrous sulfate 325 (65 Fe) MG Tablet Take 1 Tablet by mouth daily. 30 Tablet 2 Active ergocalciferol (VITAMIN D) 11679 UNIT Capsule Take 50,000 Units by mouth. 4 Active thiamine (VITAMIN B1) 100 MG Tablet Take 1 Tablet by mouth 2 times daily. 4 Active ascorbic acid 500 MG Tablet Take by mouth. A ctive Multiple Vitamins-Minera ls (MULTIVITAMIN ADULTS PO) Take 1 Tablet by mouth. bariatric Active Active Problems Problem Noted Date Diagnosed Date Iron deficiency anemia, unspecified 07/31/2024 Iron deficiency 07/30/2024 Immunizations Immunization Administration Dates Next Due DTP Vaccine 05/20/1996, 3,06/27/1991,1990,03/05/1991 Hepatitis B Vaccine, Pediatric/adolescent 01/02/2003,07/18/2002,05/23/2002 Hib Vaccine,unspecified Formulation 11/02,06/27/1991,04/30/1991,1990 Influenza Vaccine, Quadrivalent, PF 07/22/2021,1 11/08/2019,07/22/2019 MMR Vaccine 09/07/2019,05/20/1996,11/11/1992 OPV 05/20/1996, 3,04/30/1991,1990 TDAP Vaccine 08/05/2021,,09/07/2019,2014 Family History Medical History Relation Name Comments Cancer Maternal Grandmother Relation Name Status Comments Maternal Grandmother Social History Tobacco Use Types Packs/Day Years Used Date Smoking Tobacco: Never Smokeless Tobacco: Never Tobacco Cessation:Counseling Given: No Alcohol Use Standard Drinks/Week Comments Not Currently 0 (1 standard drink = 0.6 oz pur e alcohol) PHQ-2 Answer Date Recorded Total Score - Questions 1-9 0 05/02 Comments Unknown Sex and Gender Information Value Date Recorded Sex Assigned at Not on file Legal Sex Female 3:40 PM CDT Gender Identity Not on file Sexual Orientation Not on file Last Filed Vital Signs Vital Sign Reading Time Taken Comments Blood Pressure 104/82 08/06/2024 10:26 AM STAMPING MILL TENDER Pulse 78 08/06/2024 10:26 AM STAMPING MILL TENDER Temperature 36.4 C (97.5 F) 08/06/2024 10:26 AM STAMPING MILL TENDER Respiratory Rate 18 08/06/2024 10:2 6 AM STAMPING MILL TENDER Oxygen Saturation 99% 08/06/2024 10: 26 AM STAMPING MILL TENDER Inhaled Oxygen Concentration - - Weight 90.2 kg (198 lb 14.4 oz) 024 10:21 AM CDT Height 175.3 cm (5' 9) 07/26/2024 10:2 1 AM CDT Body Mass Index 29.37 07/26/2024 10:21 AM CDT Plan of Treatment Health Maintenance Due Date Last Done Comments Hepatitis C Virus (HCV) Screening 1990 Pap Smear 12/13/2011 Human Papillomavirus (HPV) Immunization (1 - 3-dose SCDM series) 2017 Cervical Cancer Screening (CCS) 2020 HPV/Cotest 2020 SARS-COV-2 Immunization ( season) 2024 10/10/2021, 05/09/2021 Influenza Immunization (#1) 2025 1010/2020, 09/07/2020, 07/22/2019 DTaP/Tdap/Td Immunization (10 - Td or Tdap) 08/05/2031 08/05/2021, 12/03/2020, 09/07/2019, Additional history exists Respiratory Syncytial Virus (RSV) Immunization (Adult) (1 - 1-dose 75+ series) 2065 Hepatitis B Immunization Completed 003, 07/18/2002, 05/23/2002 Meningococcal Immunization (ACWY) Aged Out No longer eligible based on patient's age to complete this topic Pneumococcal Immunization Combined Aged Out No longer eligible based on patient's age to complete this topic Rotavirus Immunization Aged Out No lo nger eligible based on patient's age to complete this topic Insurance MEDICAID [place] Care Teams Digital Production Operator Relationship Specialty Start Date End Date Severino Huertas MD [address] [place] [address] PCP - General Family Medicine 04/28/22 Geovanny Kelsey MD [address] [place] [phone] Consulting Physician Oncology 04/19/23
--- OUTSIDE RECORDS SUMMARY | 2025-05-01 11:16 | XMS_ITS | Referral Summary ---
Author Organization [facility] Address 1 [place] [address] Care Team Providers Care Protection Consultant Name Role Phone Anaid Morales MD Primary Care Provi mike Encounters Date Type Department Care Team Description 02/12/2025 9:50 AM CDT Lab [address] [address] from Last 3 Months Allergies No known active allergies Medications busPIRone [...] 09/18/2022 Acute pharyngitis 09/18/2022 Tinea corporis 09/18/2022 Social History Tobacco Use Types Packs/Day Years [...] 01/12/2024 6:49 PM CDT Plan of Treatment Not on file Procedures Procedure Name Priority Date/Time Associated Diagnosis [...] Results * eGFR (02/12/2025 10:06 AM CDT) eGFR >90 >=60 mL/min/1. 73 m2 Comment: [...] BLOOD ORDERABLES Fin al Result [facility] 1 [facility] [place] [address] * Differential, auto (02/12/2025 10:06 AM CDT) [...] revised on 2018. Monocyte pct 8.9 % [facility] ([place]) Comment: Interpretive Data [...] revised on 2018. Basophil pct 0.7 % [facility] ([place]) Comment: Interpretive Data Percent cell count reference ranges are not reported, since discordance with absolute values may lead to misinterpretation of CBC data. Current Interpretive Data was last revised on 2018. Blood 02/12/2025 10:0 6 AM CDT 02/12/2025 10:35 AM CDT Mireille Mccann MD LAB BLOOD ORDERABLES Fin al Result LYSSA CORDERO ([place]) 1 [facility] Department [place] [address] * Iron profile w/ IBC (02/12/2025 10:06 AM CDT) Pathologist [facility] Iron 67 35 - 145 mcg/dL TIBC 250 250 - 400 mcg/dL [facility] Transferrin saturation 27 20 - 50 % [facility] ([place]) Blood 02/12/2025 10:0 6 AM CDT 02/12/2025 10:35 AM CDT Mireille Mccann MD LAB BLOOD ORDERABLES Fin al Result Performing Organization Address [facility] de Phone Number LYSSA CORDERO ([place]) 1 [facility] [place] [address] * (ABNORMAL) CBC with auto differential (02/12/2025 10:06 AM CDT) [facility] WBC 5.42 3.80 - 9.90 K/cumm Hgb 14.4 11.9 - 15.5 g/dL [facility] ([place] Hct 43.8 35.6 - 45.5 [...] 42.5 35.7 - 48.1 fL [facility] ([place]) NRBC abs 0.00 0.00 - 0.01 K/cumm [facility] ([place]) Blood 02/12/2025 10:0 6 AM CDT 02/12/2025 10:35 AM CDT Mireille Mccann MD LAB BLOOD ORDERABLES Fin al Result L[facility]SSA CORDERO (RUPERT) 1 [facility] [place] [address] * (ABNORMAL) Vitamin D 25 hydroxy (02/12/2025 10:06 AM CDT) Vitamin D 25-OH 24(L) 30 - 80 ng/mL Blood 02/12/2025 10:0 6 AM CDT 02/12/2025 10:35 AM CDT Mireille Mccann MD LAB BLOOD ORDERABLES Fin al Result Performing Organization Address [facility] Co de Phone Number L[facility]SSA CORDERO (RUPERT) 1 [place] [address] * Transferrin (02/12/2025 10:06 AM CDT) Transferrin 207 200 - 360 mg/dL Comment:Testing performed by : [facility], [address] [place] [address], [place]., [address] Blood 02/12/2025 10:0 6 AM CDT 02/12/2025 4:19 PM CDT Mireille Mccann MD LAB BLOOD ORDERABLES Fin al Result Performing Organization Address City/[facility]/ZIP Co de Phone Number LYSSA CORDERO (RUPERT) 1 [facility] [place] [address] * TSH (02/12/2025 10:06 AM CDT) Thyroid Stimulating Hormone 2.76 0.30 - 4.20 mcIUnit/mL Blood 02/12/2025 10:0 6 AM CDT 02/12/2025 10:35 AM CDT Mireille Mccann MD LAB BLOOD ORDERABLES Fin al Result Performing Organization Address [facility] de Phone Number L[facility]SSA CORDERO (RUPERT) 1 [facility] [place] [address] * Vitamin B1 (02/12/2025 10:06 AM CDT) Thiamine (Vit B1) 103 70 - 180 nmol/L [facility] Comment: ADDITIONAL INFORMATION This test was developed and its performance characteristics determined by [facility] in a manner consistent with CLIA requirements. This test has not been cleared or approved by the U.S. Food and Drug Administration. Test Performed by: [facility] [address] [place] [address] Watch Guard Gate: Murray Gagnon Ph.D.; CLIA# [id number] Blood 02/12/2025 10:0 6 AM CDT 02/12/2025 10:36 AM CDT Mireille Mccann MD LAB BLOOD ORDERABLES Fin al Result Performing Organization Address [facility] de Phone Number L[facility]SSA CORDERO (RUPERT) 1 [facility] [place] [address] [facility] * Phosphorus (02/12/2025 10:06 AM CDT) Phosphorus, pl 2.5 2.3 - 4.5 mg/dL Blood 02/12/2025 10:0 6 AM CDT 02/12/2025 10:35 AM CDT Mireille Mccann MD LAB BLOOD ORDERABLES Fin al Result Performing Organization Address City/[facility] Co de Phone Number L[facility]SSA CORDERO (RUPERT) 1 [facility] [place] [address] * (ABNORMAL) PTH (02/12/2025 10:06 AM CDT) PTH 73(H) 15 - 65 pg/mL Blood 02/12/2025 10:0 6 AM CDT 02/12/2025 10:35 AM CDT Mireille Mccann MD LAB BLOOD ORDERABLES Fin al Result Performing Organization Address [facility] Co de Phone Number L[facility]A CORDERO (RUPERT) 1 [facility] [place] [address] * Magnesium (02/12/2025 10:06 AM CDT) Magnesium 2.0 1.4 - 2.5 mg/dL Blood 02/12/2025 10:0 6 AM CDT 02/12/2025 10:35 AM CDT Mireille Mccann MD LAB BLOOD ORDERABLES Fin al Result Performing Organization Address [place] [facility] de Phone Number LYSSA CORDERO (RUPERT) 1 [facility] [place] [address] * Folate (02/12/2025 10:06 AM CDT) Folic acid 6.7 >=5.0 ng/mL Comment:Slightly Hemolyzed S pecimen. Results may be affected. Blood 02/12/2025 10:0 6 AM CDT 02/12/2025 10:35 AM CDT Mireille Mccann MD LAB BLOOD ORDERABLES Fin al Result Performing Organization Address City/[facility] Co de Phone Number L[facility]SSA CORDERO (RUPERT) [address] [place] [address] * Ferritin (02/12/2025 10:06 AM CDT) Ferritin 51 15 - 150 ng/mL Blood 02/12/2025 10:0 6 AM CDT 02/12/2025 10:35 AM CDT Mireille Mccann MD LAB BLOOD ORDERABLES Fin al Result [facility] (RUPERT) 1 [place] [address] * Vitamin B12 (02/12/2025 10:06 AM CDT) Vitamin B12 568 230 - 1,250 pg/mL Blood 02/12/2025 10:0 6 AM CDT 02/12/2025 10:35 AM CDT Mireille Mccann MD LAB BLOOD ORDERABLES Fin al Result Performing Organization Address City/[facility] de Phone Number [facility] (RUPERT) [address] [place] [address] * Lipid panel (02/12/2025 10:06 AM CDT) [...] revised on 2018. Triglycerides 67 <=149 mg/dL [facility] (RUPERT) Comment: Interpretive Data Ages < or = [...] on 2018. HDL 51 >=40 mg/dL [facility] Morgan ([place]) Comment: Interpretive Data Ages < or [...] NCEP Expert Panel. Circulation 2004;110:227 3. Ariel Arnold al. PRADEEP Cardiol. 2020 January 30;5(5):540-548. doi: 10.1001/jamacardio.2020.0013 Current Interpretive Data was last revised on 2024. Non-HDL Cholesterol 111 mg/dL [facility] ([place]) Comment: Interpretive Data Ages < or [...] last revised on 2018. Chol/HDL ratio 3 [facility] ([place]) Blood 02/12/2025 10:0 6 AM CDT 02/12/2025 10:35 AM CDT us Mireille Mccann MD LAB BLOOD ORDERABLES Fin al Result [facility] (RUPERT) 1 [facility] Department [place] [address] * Comprehensive metabolic panel (02/12/2025 10:06 AM CDT) Sodium 137 135 - 145 mmol/L Potassium, pl 4.2 3.3 - 4.9 mmol/L [facility] ([place]) Chloride 102 97 - 110 mmol/L [facility] ([place]) CO2 24 22 - 32 mmol/L [facility] ([place]) Anion gap 11 2 - 15 mmol/L [facility] ([place]) BUN 7 6 - 25 mg/dL [facility] ([place]) Creatinine 0.69 0.60 - 1.10 mg/dL [facility] ([place]) Glucose 91 70 - 199 mg/dL [facility] ([place]) Comment: Interpretive Data Fasting glucose [...] classification and Diagnosis of Diabetes Diabetes Care 202; 46: S19-S40. Current interpretive data was last [...] Fin al Result [facility] ([place]) 1 [facility] [place] [address] from Last 3 Months Insurance [facility] Care Teams Protection Consultant Relationship Specialty Start Date End Date Anaid Morales MD PCP - General Family Medicine 07/27/22
[2025-05-01 11:26] LABS: Hematocrit 42.2 % (37.0-47.0); Hemoglobin 13.6 g/dL (12.0-15.0); Immature Granulocyte Percent A 0.2 % (0-0.5); Lymphocytes Absolute Auto 2.62 K/mm3 (0.9-3.2); Mean Corpuscular HGB Conc 32.2 g/dl (32-36); Mean Corpuscular Hemoglobin 29.1 pg (26-34); Mean Corpuscular Volume 90.4 fl (80-100); Nucleated Red Blood Cells Absolute Auto 0.000 K/mm3 (0.0-0.012); Nucleated Red Blood Cells Perc 0.0 % (0.0-0.2); Platelet Count Result 247 k/mm3 (150-375); Red Blood Count 4.67 M/mm3 (4.2-5.4); White Blood Count 6.5 K/mm3 (4.5-10.0)
[2025-05-01 11:40] LABS: INR 1.1; Partial Thromboplastin Time 32.9 Seconds (22.3-36.8); Prothrombin Time 14.6 Seconds (11.1-14.7)
[2025-05-01 11:52] LABS: Alanine Aminotransferase 21 U/L (6-35); Albumin Level 4.3 g/dL (3.5-5.1); Alkaline Phosphatase 63 U/L (38-126); Anion Gap 8 mmol/L (4-12); Aspartate Amino Transferase 30 U/L (14-36); Bilirubin,Total 0.5 mg/dL (0.2-1.3); Blood Urea Nitrogen 7 mg/dL (7-17); Calcium 9.0 mg/dL (8.4-10.2); Carbon Dioxide 25 mmol/L (22-30); Chloride 104 mmol/L (98-107); Estimated CRCL calculation 101 ml/min; Estimated Glomerular Filt Rate > 60; Glucose 104 mg/dL (65-110); Lipase 104 U/L (23-300); Potassium 3.7 mmol/L (3.4-5.0); Sodium 137 mmol/L (137-145); Total Protein 7.6 g/dL (6.3-8.2)
[2025-05-01 12:03] LABS: Troponin I < 0.012 ng/mL (0.000-0.034)
[2025-05-01] MEDS: FAMOTIDINE 20 MG TABLET PO (12:35)
--- OUTSIDE RECORDS SUMMARY | 2025-05-01 13:07 | XMS_ITS | Clinical Summary ---
Author Organization [facility] Address [address] [place] [address] Care Team Providers Care Flight Data Technician Name Role Phone Anaid Morales MD Primary [...] Team Description 02/12/2025 9:50 AM CDT Lab [address] [address] from Last 3 Months Surgical History Surgery [...] Results * eGFR (02/12/2025 10:06 AM CDT) [facility] eGFR >90 >=60 mL/min/1. 73 m2 Comment: [...] BLOOD ORDERABLES Fin al Result [facility] ([place]) 1 [facility] Department [place] [address] * Differential, auto (02/12/2025 10:06 AM CDT) [...] BLOOD ORDERABLES Rahul al Result L[facility]A CORDERO ([place]) 1 [facility] [place] [address] * Iron profile w/ IBC (02/12/2025 10:06 AM CDT) Iron 67 35 - 145 mcg/dL TIBC 250 250 - 400 mcg/dL [facility] ([place]) Transferrin saturation 27 20 - 50 % [facility] ([place]) Blood 02/12/2025 10:0 6 AM CDT 02/12/2025 10:35 AM CDT Mireille Mccann MD LAB BLOOD ORDERABLES Fin al Result [facility] ([place]) 1 [facility] [place] [address] * (ABNORMAL) CBC with auto differential (02/12/2025 [...] Fin al Result [facility] ([place]) 1 [facility] [place] [address] * (ABNORMAL) Vitamin D 25 hydroxy (02/12/2025 10:06 AM CDT) Vitamin D 25-OH 24(L) 30 - 80 ng/mL Blood 02/12/2025 10:0 6 AM CDT 02/12/2025 10:35 AM CDT Mireille Mccann MD LAB BLOOD ORDERABLES Fin al Result Performing Organization Address [facility] Co de Phone Number LYSSA GuevaraPOLK) 1 [place] [address] * Transferrin (02/12/2025 10:06 AM CDT) Transferrin 207 200 - 360 mg/dL Comment:Testing performed by : [facility], [address] [place] [address], [address] Blood 02/12/2025 10:0 6 AM CDT 02/12/2025 4:19 PM CDT Mireille Mccann MD LAB BLOOD ORDERABLES Fin al Result Performing Organization Address [facility] de Phone Number LYSSA GuevaraPOLK) 1 [facility] [place] [address] * TSH (02/12/2025 10:06 AM CDT) Thyroid Stimulating Hormone 2.76 0.30 - 4.20 mcIUnit/mL Blood 02/12/2025 10:0 6 AM CDT 02/12/2025 10:35 AM CDT Mireille Mccann MD LAB BLOOD ORDERABLES Fin al Result Performing Organization Address [facility] Co de Phone Number LYSSA CORDERO ([place]) 1 [facility] [place] [address] * Vitamin B1 (02/12/2025 10:06 AM CDT) Thiamine (Vit B1) 103 70 - 180 nmol/L [facility] Comment: ADDITIONAL INFORMATION This test was developed and its performance characteristics determined by [facility] in a manner consistent with CLIA requirements. This test has not been cleared or approved by the U.S. Food and Drug Administration. Test Performed by: [facility] [address] [place] [address] Portrait Consultant: Murray Gagnon Ph.D.; CLIA# [id number] Blood 02/12/2025 10:0 6 AM CDT 02/12/2025 10:36 AM CDT Mireille Mccann MD LAB BLOOD ORDERABLES Fin al Result L[facility]SSA CORDERO ([place]) 1 [place] [address] [facility] * Phosphorus (02/12/2025 10:06 AM CDT) Phosphorus, pl 2.5 2.3 - 4.5 mg/dL Blood 02/12/2025 10:0 6 AM CDT 02/12/2025 10:35 AM CDT Mireille Mccann MD LAB BLOOD ORDERABLES Fin al Result Performing Organization Address [facility] Co de Phone Number L[facility]SSA CORDERO ([place]) 1 [facility] [employer] [address] * (ABNORMAL) PTH (02/12/2025 10:06 AM CDT) PTH 73(H) 15 - 65 pg/mL Blood 02/12/2025 10:0 6 AM CDT 02/12/2025 10:35 AM CDT Mireille Mccann MD LAB BLOOD ORDERABLES Fin al Result L[facility]SSA CORDERO ([place]) 1 [facility] [place] [address] * Magnesium (02/12/2025 10:06 AM CDT) Magnesium 2.0 1.4 - 2.5 mg/dL Blood 02/12/2025 10:0 6 AM CDT 02/12/2025 10:35 AM CDT Mireille Mccann MD LAB BLOOD ORDERABLES Fin al Result Performing Organization Address City/[facility] Co de Phone Number LYSSA CORDERO ([place]) [address] [place] [address] [employer] [address] * Folate (02/12/2025 10:06 AM CDT) Pathologist [facility] Folic acid 6.7 >=5.0 ng/mL Comment:Slightly Hemolyzed S pecimen. Results may be affected. Blood 02/12/2025 10:0 6 AM CDT 02/12/2025 10:35 AM CDT Mireille Mccann MD LAB BLOOD ORDERABLES Fin al Result Performing Organization Address [facility] Co de Phone Number LYSSA CORDERO ([place]) 1 [facility] [place] [address] * Ferritin (02/12/2025 10:06 AM CDT) Pathologist [facility] Ferritin 51 15 - 150 ng/mL Blood 02/12/2025 10:0 6 AM CDT 02/12/2025 10:35 AM CDT Mireille Mccann MD LAB BLOOD ORDERABLES Fin al Result Performing Organization Address City/[facility] Co de Phone Number LYSSA CORDERO ([place]) 1 [facility] [place] [address] * Vitamin B12 (02/12/2025 10:06 AM CDT) Vitamin B12 568 230 - 1,250 pg/mL Blood 02/12/2025 10:0 6 AM CDT 02/12/2025 10:35 AM CDT us Mireille Mccann MD LAB BLOOD ORDERABLES Fin al Result L[facility]SSA CORDERO ([place]) 1 [facility] [place] [address] * Lipid panel (02/12/2025 10:06 AM CDT) [...] Fin al Result [facility] ([place]) 1 [facility] [place] [address] * Comprehensive metabolic panel (02/12/2025 10:06 AM CDT) Sodium 137 135 - 145 mmol/L Potassium, pl 4.2 3.3 - 4.9 mmol/L [facility] ([place]) Chloride 102 97 - 110 mmol/L [facility] ([place]) CO2 24 22 - 32 mmol/L CERNER [...] BLOOD ORDERABLES Fin al Result [facility] ([place]) 1 [facility] [place] [address] from Last 3 Months Insurance PLAN PLAN Care Teams Flight Data Technician Relationship Specialty Start Date End Date Anaid Morales MD PCP - General Family Medicine 07/27/22
--- OUTSIDE RECORDS SUMMARY | 2025-05-01 13:07 | XMS_ITS | Encounter Summary ---
Author Organization [facility] Address [address] [place] [address] Care Team Providers Care Field Service Tech Name Role Phone Devora Hargrove MD Primary Care Provider [phone] Anaid Morales MD Primary Care Provider [phone] Elsa Alcaraz RIVET MAKER-FARM SUPERVISOR Unavailable [phone] Encounter Details Date Type Department Care Team (Late Contact Info) Description 09/01/2020 Telephone [facility] Women's Health Maternal & Care [address] [place] [address] Lizette Parks, [facility] Social History Tobacco Use Types Packs/Day Years Used Date Smoking Tobacco: Never Smokeless Tobacco: Never Alcohol Use Standard Drinks/Week Comments Not Currently 0 (1 standard drink = 0.6 oz pur e alcohol) Comments Yes Sex and Gender Information Value Date Recorded Sex Assigned at Female 10/24/2023 10:44 AM INSPECTOR PACKAGER Legal Sex Female 10:30 PM INSPECTOR PACKAGER Gender Identity Female 10/24/2023 10:44 AM INSPECTOR PACKAGER Sexual Orientation Straight 10/24/2023 10 :44 AM INSPECTOR PACKAGER COVID-19 Exposure Response Date Recorded In the last month, have you been in contact with someone who was confirmed or suspected to have Coronavirus / COVID-19? Unable to assess 09/04/2020 10:45 AM INSPECTOR PACKAGER documented as of this encounter Plan of Treatment Upcoming Encounters Date Type Department Care Team (Late Contact Info) Description 07/04/2025 10:30 AM CDT Clinical Support [facility] Health Weight Management Services [address] [place] [address] 07/04/2025 11:00 AM CDT Office Visit [facility] Health Weight Management Services [address] [place] [address] Janet Fleming APRN-FARM SUPERVISOR [address] [place] [address] 01/09/2026 10:00 AM CDT Office Visit [facility] Health Weight Management Services [address] [place] [address] Janet Fleming APRN-FARM SUPERVISOR [address] [place] [address] 01/09/2026 10:30 AM CDT Office Visit [facility] Health Weight Management Services [address] [place] [address] Janet Fleming APRN-FARM SUPERVISOR [address] [place] [address] documented as of this encounter Visit Diagnoses Not on filedocumented in this encounter Care Teams Field Service Tech Relationship Specialty Start Date End Date Devora Hargrove MD [address] [place] [phone] PCP - General 12/04/20 08/02/23 Anaid Morales MD [address] [place] [address] PCP - General Family Medicine 08/03/23 Elsa Alcaraz APRN-FARM SUPERVISOR [address] [place] [id number] PCP - Attributed-[employer] Medicaid [place] 12/31/17 documented as of this encounter
--- OUTSIDE RECORDS SUMMARY | 2025-05-01 13:07 | XMS_ITS | Clinical Summary ---
Author Organization [facility] [employer] Address [address] [place] [address] Care Team Providers Care Waste Hand Name Role Phone Anaid Morales MD Primary Care Provider [phone] PeriElsa coy APRN-POLICE DETENTION ATTENDANT Unavailable [phone] Source Comments [facility] [employer],non-owned Affiliates and Associated Physician Practices is amultiple site organization consisting of ambulatory clinics and hospital sitesin [place], [place], [place] and [place]. This disclosure is being madepursuant to the Care Everywhere program and may not contain all information available regarding this patient. Last updated 18.[facility] [employer] Allergies No known active allergies Medications * [...] Active vitamin D, ergocalciferol, (Drisdol) 1.25 MG (43664 UT) capsuleIndicati ons:Vitamin D Deficiency Take 1 [...] Rios was screened for depression using the [place] Depression Scale (EPDS) at her [facility] initial evaluation on 10/15/2020. Her initial [...] from the original note were not included. [facility] PATIENT--PLEASE CALL [phone] (ex 2) IF TRIAGED OR ADMITTED Care Provider: Dr. Chandler at [facility] consultants involved: RN- Babar; MFM- Dr. Parekh; Pediatric Surgery- Dr. Balderas and Tristan Perez APRN Diagnosis: Monochorionic/Diamniotic Twins; Twin B: A right CPAM - CVR is 0.47 (on 11/12/20 US - decreased from previous visit). 09/02/2020: echocardiograms of both twins show normal cardiac anatomy. Planned surveillance: Initial [facility] 10/15/20. Return to [facility] 11/12/20 for US/consults. Weekly ultrasound for testing/TTTS screening;. CVR evaluations every 2 weeks at least. Continue routine OB care with primary OB. Released from [facility] 11/12/2020 Delivery location: planning [facility] Delivery mode: Per usual OB indications Desired Delivery GA: 36-37 weeks for uncomplicated monochorionic twin gestation (or sooner as indicated) follow up: per surgery: If the baby remains asymptomatic postnatally, then we will follow up in clinic with a CT chest planned at around 3 months with a plan for resection at around 6 months of age. Arts Therapist: Dr. Reynoso in [place] Autopsy indicated: Genetics note: Low risk NIPT (monozygotic twins; predicted female) Psychotherapist Social Worker Concerns: 10/15/2020-Patient with history of anxiety, depression and PPD- no medications. Care plan based on evaluation and is subject to change based on assessment. See Images or Cardiac under Chart Review for US/ ECHO/ MRI reports. Encounters Date Type Department Care Team Description 03/03/2025 Telephone [facility] [employer] [facility] [address] [place] [address] Alexandria Gastelum RN Results 02/18/2025 Orders Only [facility] [employer] [facility] [address] [place] [phone] Janet Fleming APRN-CNP Hyperparathyroidism due to vitamin D deficiency (HCC) ; S/P gastric bypass; Overweight (BMI 25.0-29.9); Bariatric surgery status; Vitamin D deficiency 02/14/2025 Orders Only [facility] Health [facility] [address] [place] [phone] Janet Fleming APRN-CNP S/P gastric bypass; Overweight (BMI 25.0-29.9); Bariatric surgery status; Dizziness, nonspecific; Vitamin D deficiency; Hyperparathyroidism due to vitamin D deficiency (HCC); Iron deficiency 02/13/2025 Orders Only [facility] [address] [place] [address] Fleming, Janet R, DYER ASSISTANT-POLICE DETENTION ATTENDANT Vitamin D deficiency ; Hyperparathyroidism due to [...] Recorded Patient Health Questionnaire-2 Score 0 01/24/2025 [facility] - Occupational Stress [...] No 01/03/2024 Housing Stability Vital Sign Answer Amlik e Recorded In the last 12 months, [...] place to sleep or slept in a senior care (including now)? No 01/03/2024 Comments No Sex and Gender Information Value Date Recorded Sex Assigned at Female 10/24/2023 10:44 AM EYEGLASS LENS GENERATOR Legal Sex Female 10:30 PM EYEGLASS LENS GENERATOR Gender Identity Female 10/24/2023 10:44 AM EYEGLASS LENS GENERATOR Sexual Orientation Straight 10/24/2023 10 :44 AM EYEGLASS LENS GENERATOR Last Filed Vital Signs Vital Sign Reading [...] Description 07/04/2025 10:30 AM CDT Clinical Support [facility] [address] [place] [phone] 07/04/2025 11:00 AM CDT Office Visit [facility] [address] [place] [phone] Janet Fleming, DYER ASSISTANT-POLICE DETENTION ATTENDANT [address] [place] [address] 01/09/2026 10:00 AM CDT Office Visit [facility] [address] [place] [phone] Janet Fleming, DYER ASSISTANT-POLICE DETENTION ATTENDANT [address] [place] [address] 01/09/2026 10:30 AM CDT Office Visit [facility] [address] [place] [address] Janet Fleming DYER ASSISTANT-POLICE DETENTION ATTENDANT [address] [place] [address] Health Maintenance Due Date Last Done Comments [...] this topic Medical Devices Implanted Type Area Flash Ranging Crewmember Device Identifier Shelf Expiration Date Model / Serial / Lot Kit Tissue Clsr Duo Tssl 1 Prefl Syr - [id number] Implanted:Qty : 1 on 01/02/2024 by M[facility]ille [facility]ann [facility] N/A: [employer] [id number] / / [id number] Procedures Procedure Name Priority Date/Time Associated Diagnosis [...] SPECIMEN / Unknown 02/12/2025 Janet Perez Bernadette [facility] - CHEMISTRY ORDERABL ES Final Result OTHER LAB * VITAMIN B1 (02/12/2025) Blood BLOOD SPECIMEN / Unknown 02/12/2025 Janet Perez Bernadette [facility] - CHEMISTRY ORDERABL ES Final Result Performing Organization Address City/[facility] Co de Phone Number OTHER LAB * VITAMIN D 25-HYDROXY (02/12/2025) Blood BLOOD SPECIMEN / Unknown 02/12/2025 Janet R Bernadette [facility] - CHEMISTRY ORDERABL ES Final Result OTHER LAB * CBC WITH DIFFERENTIAL (02/12/2025) Blood BLOOD SPECIMEN / Unknown 02/12/2025 Janet R Bernadette [facility] - HEMATOLOGY ORDERAB LES Final Result OTHER LAB * COMPREHENSIVE METABOLIC PANEL (02/12/2025) Blood BLOOD SPECIMEN / Unknown 02/12/2025 Janet R Bernadette [facility] - CHEMISTRY ORDERABL ES Final Result OTHER LAB * PHOSPHORUS BLOOD (02/12/2025) Blood BLOOD SPECIMEN / Unknown 02/12/2025 Janet Fleming [facility] - CHEMISTRY ORDERABL ES Final Result OTHER LAB * MAGNESIUM BLOOD (02/12/2025) Blood BLOOD SPECIMEN / Unknown 02/12/2025 Janet Fleming [facility] - CHEMISTRY ORDERABL ES Final Result OTHER LAB * VITAMIN B12 FOLATE PANEL (02/12/2025) Blood BLOOD SPECIMEN / Unknown 02/12/2025 Janet Fleming DYER ASSISTANT-[facility] - CHEMISTRY ORDERABL ES Final Result Performing Organization Address City/[facility]/ZIP Co de Phone Number OTHER LAB * TSH (02/12/2025) Blood BLOOD SPECIMEN / Unknown 02/12/2025 Janet Fleming DYER ASSISTANT-[facility] - CHEMISTRY ORDERABL ES Final Result Performing Organization Address City/[facility]/ZIP Co de Phone Number OTHER LAB * IRON + TRANSFERRIN PANEL (02/12/2025) Blood BLOOD SPECIMEN / Unknown 02/12/2025 Janet Fleming DYER ASSISTANT-[facility] - CHEMISTRY ORDERABL ES Final Result OTHER LAB * FERRITIN (02/12/2025) Blood BLOOD SPECIMEN / Unknown 02/12/2025 Janet Fleming DYER ASSISTANT-POLICE DETENTION ATTENDANT LAB - CHEMISTRY ORDERABL ES Final Result OTHER LAB * LIPID PROFILE (02/12/2025) Blood BLOOD SPECIMEN / Unknown 02/12/2025 Janet Fleming DYER ASSISTANT-POLICE DETENTION ATTENDANT LAB - CHEMISTRY ORDERABL ES Final Result OTHER LAB from Last 3 Months Insurance [facility] MEDICAID [facility] MEDICAID Advance Directives * Full Code [...] 6:33 PM 11/30/2020 10:33 PM Care Teams Waste Hand Relationship Specialty Start Date End Date Anaid Morales MD [address] [place] [address] PCP - General Family Medicine 08/03/23 Elsa Alcaraz APRN-POLICE DETENTION ATTENDANT [address] [place] [address] PCP - Attributed-[place] Medicaid [place] 12/31/17
--- OUTSIDE RECORDS SUMMARY | 2025-05-01 13:07 | XMS_ITS | Clinical Summary ---
Author Organization [facility] Address [address], [facility] [address] [place] [address] Phone Care Team Providers Care Bulb Brander Name Role Phone Severino Huertas MD Primary Care Provider [phone] Geovanny Kelsey MD Unavailable [phone] Allergies No known active allergies Medications ferrous sulfate 325 (65 Fe) MG Tablet Take 1 Tablet by mouth daily. 30 Tablet 2 Active ergocalciferol (VITAMIN D) 87957 UNIT Capsule Take 50,000 Units by mouth. [...] Comments Blood Pressure 104/82 08/06/2024 10:26 AM FILLER MIXER Pulse 78 08/06/2024 10:26 AM FILLER MIXER Temperature 36.4 C (97.5 F) 08/06/2024 10:26 AM FILLER MIXER Respiratory Rate 18 08/06/2024 10:2 6 AM FILLER MIXER Oxygen Saturation 99% 08/06/2024 10: 26 AM FILLER MIXER Inhaled Oxygen Concentration - - Weight 90.2 [...] Insurance MEDICAID [place] Care Teams Bulb Brander Relationship Specialty Start Date End Date Severino Huertas MD [address] [place] [address] PCP - General Family Medicine 04/28/22 Geovanny Kelsey MD [address] [place] [phone] Consulting Physician Oncology 04/19/23
--- OUTSIDE RECORDS SUMMARY | 2025-05-01 13:08 | XMS_ITS | Referral Summary ---
Author Organization [facility] Address [address] [place] [address] Care Team Providers Care Sprayer Operator Name Role Phone Anaid Morales MD Primary Care Provi mike Encounters Date Type Department Care Team Description 02/12/2025 9:50 AM CDT Lab [address] [address] from Last 3 Months Allergies No known [...] BLOOD ORDERABLES Fin al Result [facility] [place] [address] [facility] Department [place] [address] * Differential, auto (02/12/2025 10:06 AM CDT) [...] Fin al Result [facility] ([place]) [address] [facility] [place] [address] * Iron profile w/ IBC (02/12/2025 10:06 AM CDT) Pathologist [facility] Iron 67 35 - 145 mcg/dL TIBC 250 250 - 400 mcg/dL [facility] Transferrin saturation 27 20 - 50 % [facility] ([place] Blood 02/12/2025 10:0 6 AM CDT 02/12/2025 10:35 AM CDT Mireille Mccann MD LAB BLOOD ORDERABLES Fin al Result Performing Organization Address [facility]/[place] de Phone Number [facility] ([place] 1 [facility] [place] [address] * (ABNORMAL) CBC with auto differential (02/12/2025 10:06 AM CDT) [facility] WBC 5.42 3.80 - 9.90 K/cumm Hgb 14.4 11.9 - 15.5 g/dL [facility] ([place]) Hct 43.8 35.6 - 45.5 [...] 42.5 35.7 - 48.1 fL [facility] ([place]) NRBC abs 0.00 0.00 - 0.01 K/cumm [facility] ([place]) Blood 02/12/2025 10:0 6 AM CDT 02/12/2025 10:35 AM CDT Mireille Mccann MD LAB BLOOD ORDERABLES Fin al Result [facility] ([place] 1 [facility] [place] [address] * (ABNORMAL) Vitamin D 25 hydroxy (02/12/2025 10:06 AM CDT) Vitamin D 25-OH 24(L) 30 - 80 ng/mL Blood 02/12/2025 10:0 6 AM CDT 02/12/2025 10:35 AM CDT Mirielle Mccann MD LAB BLOOD ORDERABLES Fin al Result Performing Organization Address [facility] Co de Phone Number [facility] ([place]) [address] [place] [address] * Transferrin (02/12/2025 10:06 AM CDT) Transferrin 207 200 - 360 mg/dL Comment:Testing performed by : [facility], [address] [place] [address], [place]., [address] Blood 02/12/2025 10:0 6 AM CDT 02/12/2025 4:19 PM CDT Mireille Mccann MD LAB BLOOD ORDERABLES Fin al Result Performing Organization Address City/[facility]/ZIP Co de Phone Number [facility] ([place]) 1 [facility] [place] [address] * TSH (02/12/2025 10:06 AM CDT) Thyroid Stimulating Hormone 2.76 0.30 - 4.20 mcIUnit/mL Blood 02/12/2025 10:0 6 AM CDT 02/12/2025 10:35 AM CDT Mireille Mccann MD LAB BLOOD ORDERABLES Fin al Result Performing Organization Address [facility]/[place] de Phone Number [facility] ([place]) 1 [facility] [place] [address] * Vitamin B1 (02/12/2025 10:06 AM CDT) Thiamine (Vit B1) 103 70 - 180 nmol/L [place] [facility] Comment: ADDITIONAL INFORMATION This test was developed and its performance characteristics determined by [facility] in a manner consistent with CLIA requirements. This test has not been cleared or approved by the U.S. Food and Drug Administration. Test Performed by: [facility] [address] [place] [address] Asbestos Handler: Murray Gagnon Ph.D.; CLIA# [id number] Blood 02/12/2025 10:0 6 AM CDT 02/12/2025 10:36 AM CDT Mireille Mccann MD LAB BLOOD ORDERABLES Fin al Result Performing Organization Address [facility]/[place] de Phone Number [facility] ([place]) 1 [facility] [place] [address] [place] [facility] * Phosphorus (02/12/2025 10:06 AM CDT) Phosphorus, pl 2.5 2.3 - 4.5 mg/dL Blood 02/12/2025 10:0 6 AM CDT 02/12/2025 10:35 AM CDT Mireille Mccann MD LAB BLOOD ORDERABLES Fin al Result Performing Organization Address City/[facility] Co de Phone Number [facility] ([place]) 1 [facility] [place] [address] * (ABNORMAL) PTH (02/12/2025 10:06 AM CDT) PTH 73(H) 15 - 65 pg/mL Blood 02/12/2025 10:0 6 AM CDT 02/12/2025 10:35 AM CDT Mireille Mccann MD LAB BLOOD ORDERABLES Fin al Result Performing Organization Address [facility] Co de Phone Number [facility] ([place] 1 [facility] [place] [address] * Magnesium (02/12/2025 10:06 AM CDT) Magnesium 2.0 1.4 - 2.5 mg/dL Blood 02/12/2025 10:0 6 AM CDT 02/12/2025 10:35 AM CDT Mireille Mccann MD LAB BLOOD ORDERABLES Fin al Result Performing Organization Address [facility] de Phone Number [facility] ([place]) 1 [facility] [place] [address] * Folate (02/12/2025 10:06 AM CDT) Folic acid 6.7 >=5.0 ng/mL Comment:Slightly Hemolyzed S pecimen. Results may be affected. Blood 02/12/2025 10:0 6 AM CDT 02/12/2025 10:35 AM CDT Mireille Mccann MD LAB BLOOD ORDERABLES Fin al Result Performing Organization Address City/[facility] Co de Phone Number [facility] ([place]) [address] [place] [address] * Ferritin (02/12/2025 10:06 AM CDT) Ferritin 51 15 - 150 ng/mL Blood 02/12/2025 10:0 6 AM CDT 02/12/2025 10:35 AM CDT Mireille Mccann MD LAB BLOOD ORDERABLES Fin al Result [facility] [address] [place] [address] * Vitamin B12 (02/12/2025 10:06 AM CDT) Vitamin B12 568 230 - 1,250 pg/mL Blood 02/12/2025 10:0 6 AM CDT 02/12/2025 10:35 AM CDT Mireille Mccann MD LAB BLOOD ORDERABLES Fin al Result Performing Organization Address City/[facility]/[place] de Phone Number [facility] ([place]) [address] [place] [address] * Lipid panel (02/12/2025 10:06 AM CDT) [...] revised on 2018. Triglycerides 67 <=149 mg/dL [facility] Comment: Interpretive Data Ages < or = [...] MD LAB BLOOD ORDERABLES Fin al Result [facility] ([place]) [address] [facility] Department [place] [address] * Comprehensive metabolic panel (02/12/2025 10:06 AM CDT) Sodium 137 135 - 145 mmol/L Potassium, pl 4.2 3.3 - 4.9 mmol/L [facility] Chloride 102 97 - 110 mmol/L [facility]) CO2 24 22 - 32 mmol/L [facility]) Anion gap 11 2 - 15 mmol/L [facility] ([place]) BUN 7 6 - 25 mg/dL [facility] ([place]) Creatinine 0.69 0.60 - 1.10 mg/dL [facility] ([place]) Glucose 91 70 - 199 mg/dL [facility] ([place]) Comment: Interpretive Data Fasting glucose [...] Fin al Result [facility] ([place]) [address] [facility] [place] [address] from Last 3 Months Insurance [facility] Care Teams Sprayer Operator Relationship Specialty Start Date End Date Anaid Morales MD PCP - General Family Medicine 07/27/22
--- OUTSIDE RECORDS SUMMARY | 2025-05-01 13:08 | XMS_ITS | Clinical Summary ---
Author Organization [facility] Address [address] [place] [address] Care Team Providers Care High School French Teacher Name Role Phone None, Provider MD Primary [...] on file Legal Sex Female 12:52 PM BUFFING WHEEL FORMER MACHINE Gender Identity Not on file Sexual Orientation Not on file Last Filed Vital Signs Vital Sign Reading Time Taken Comments Blood Pressure 94/54 09/27/2020 3:45 PM BUFFING WHEEL FORMER MACHINE Pulse 102 09/27/2020 3:45 PM BUFFING WHEEL FORMER MACHINE Temperature 37.2 C (99 F) 09/27/2020 1:25 PM BUFFING WHEEL FORMER MACHINE Respiratory Rate 16 09/27/2020 1:25 PM BUFFING WHEEL FORMER MACHINE Oxygen Saturation - - Inhaled Oxygen Concentration - - Weight 128.8 kg (284 lb) 11/27/2020 11:24 AM BUFFING WHEEL FORMER MACHINE Height 175.3 cm (5' 9) 11/27/2020 11:24 AM BUFFING WHEEL FORMER MACHINE Body Mass Index 41.94 11/27/2020 11:24 AM BUFFING WHEEL FORMER MACHINE Plan of Treatment Health Maintenance Due Date [...] topic Meningococcal Vaccine Aged Out No sarwat sahma eligible based on patient's age to complete this topic Pneumococcal Vaccine: Pediatrics (0 to 5 Years) and At-Risk Patients (6 to 49 Years) Aged Out No longer eligible based on patient's age to complete this topic RSV Immunizations Under 20 Months Aged Out No longer eligible based on patient's age to complete this topic Insurance [place] [address] C/O PROVIDER SERVICES [place] [id number] Care Teams High School French Teacher Relationship Specialty Start Date End Date None, Provider, PCP - General 11/27/20
== END 2025-05-01 13:26 | disposition home or self-care (01) ==
LOC: ANHED 13:01
PROVIDERS: Emergency Medicine; Emergency Provider Emergency Medicine
DX: R07.89 Other chest pain (principal); E21.3 Hyperparathyroidism, unspecified; K21.9 Gastro-esophageal reflux disease without esophagitis; Z98.84 Bariatric surgery status; Z86.2 Personal history of diseases of the blood and blood-forming organs and certain disorders involving the immune mechanism; I45.10 Unspecified right bundle-branch block; R94.31 Abnormal electrocardiogram [ECG] [EKG]
CPT/HCPCS: 36415; 71046; 80053; 83690; 84484; 85025; 85610; 85730; 93005; 96374; 99284; A9270

== ENCOUNTER 2025-08-13 15:12 | Emergency (ER) | payer BC, SELFPAY ==
[2025-08-13 15:24] VITALS: BP 124/70; PULSE 115; RESP 16; TEMP 36.5; O2SAT 100
--- NOTE | 2025-08-13 15:31 | ED.FEMALEGU ---
HPI - Female Genitourinary General Chief complaint: Urogenital-Female Stated complaint: Uti Symptoms Source: patient Mode of arrival: ambulatory Limitations: no limitations History of Present Illness HPI Narrative: Pt is a 34 y/o female presenting with c/o UTI sx. Sx reported include urinary urgency x 2 weeks. States chills and nausea today. No tx initiated [employer]AM[employer]ER. NO concern for STI or . No UTI within the last 3 months. No additional complaints. Related Data Allergies Allergy/AdvReac Type Severity Reaction Status Date / Time No Known Allergies Allergy Verified 05/01/25 11:33 Review of Systems Review of Systems: CONSTITUTIONAL:reports chills, Denies body aches, fever, or sweats. EYES: Denies visual changes, redness, or discharge. ENT: Denies rhinorrhea, congestion, sore throat, or otalgia. CARDIOVASCULAR: Denies chest pain, palpitations, or edema. RESPIRATORY: Denies cough or dyspnea. GASTROINTESTINAL: reports nausea Denies abdominal pain, vomiting, or diarrhea. GENITOURINARY: reports urinary urgency, Denies dysuria or hematuria. SKIN: Denies rash, itching, or wounds. MUSCULOSKELETAL: Denies back pain, joint pain, or myalgia. NEUROLOGIC: Denies headache, numbness, tingling, or weakness. PSYCH: Denies depression or anxiety. All systems reviewed & are unremarkable except as noted in HPI and below PMFSH Past Medical History Medical History GERD (gastroesophageal reflux disease) Headache Surgical History Surgical History History of appendectomy 2010 Hx of prior ablation treatment 2012, [facility] Family History Family History Son Heart disease Social History Social History Alcohol intake: never Substance use: never Substance use type: does not use Living arrangements: with family Gender identity (if verbalized by the patient): Female Exam Narrative: GENERAL: Well-appearing, well-nourished, and in no acute distress. HEAD: Normocephalic, atraumatic. EYES: EOMI. No redness or drainage. Conjunctivae normal. ENT: Mucous membranes pink and moist NECK: Normal AROM. Supple. CHEST: No respiratory distress. HEART: Regular rate ABDOMEN: Soft, nontender, nondistended, normal active bowel sounds. no CVAT SKIN: Warm, dry, no rash. Capillary refill normal. Normal skin turgor. NEURO: No focal deficits. Alert and oriented x3. Gait steady. PSYCH: Normal affect. No signs of depression or anxiety. Course Course Level of Care: Express Care Visit Vital Signs Vital signs: Vital Signs Temperature 97.7 F 08/13/25 15:24 Pulse Rate 115 H 08/13/25 15:24 Respiratory Rate 16 08/13/25 15:24 Blood Pressure 124/70 08/13/25 15:24 Pulse Oximetry 100 08/13/25 15:24 Temperature 97.7 F 08/13/25 15:24 Pulse Rate 115 H 08/13/25 15:24 Respiratory Rate 16 08/13/25 15:24 Blood Pressure 124/70 08/13/25 15:24 Pulse Oximetry 100 08/13/25 15:24 MDM - Female Genitourinary Lab Data Labs: Lab Results 08/13/25 Range/Units 15:37 POC Urine Color Yellow POC Urine Clarity Cloudy POC Urine pH 5.5 POC Ur Specif [place] 1.030 POC Urine Protein Trace (Negative) POC Ur Glucose (UA) Negative (Negative) POC Urine Ketones 1+ (Negative) POC Urine Blood Trace (Negative) POC Urine Nitrite Negative (Negative) POC Urine Bilirubin Negative (Negative) POC Urine Urobilinogen 0.2 POC U Leukocyte Esteras 1+ (Negative) Discharge Plan Discharge Clinical Impression: Urinary urgency, Nausea, Chills (without fever) Patient Disposition: Home Condition: Stable Instructions: Antibiotic Form, Urinary Tract Infection in Women (ED) Additional Instructions: Go straight to ER should your symptoms become worse or should any new symptoms develop Patient Language: [place] Prescriptions: New nitrofurantoin monohyd/m-cryst [Macrobid] 100 mg capsule 100 mg PO Q12H 5 Days Qty: 10 0RF Rx Instructions: must administer with a meal/food No Action omeprazole 20 mg capsule,delayed release(DR/EC) 20 mg PO BID Qty: 90 1RF famotidine 20 mg tablet 20 mg PO DAILY Qty: 30 0RF potassium chloride 20 mEq packet 20 meq PO BID 5 Days Qty: 1 0RF Follow-up/Referrals: PHYSICIAN,STEAM FRAME OPERATOR [Primary Care Provider, Internal Medicine] - 08/14/25 Time of Disposition: 15:34
[2025-08-13 15:40] LABS: EDUAAPPEAR Cloudy; EDUABILI Negative (Negative); EDUABLOOD Trace (Negative); EDUACOLOR1 Yellow; EDUAGLUCOSE Negative (Negative); EDUAKETONE 1+ (Negative); EDUALEUKO 1+ (Negative); EDUANITRATE Negative (Negative); EDUAPH 5.5; EDUAPROTEIN Trace (Negative); EDUASPGRAVITY 1.030; EDUAUROBILI 0.2
== END 2025-08-13 15:36 | disposition home or self-care (01) ==
PROVIDERS: Emergency Provider Registered Nurse
DX: R39.15 Urgency of urination (principal); R11.0 Nausea; R68.83 Chills (without fever)
CPT/HCPCS: 81003; 87086; 87186; 99213; G0463